=== PATIENT | male | born 1960 | race Caucasian/White ===

== ENCOUNTER → 2023-03-15 | Outpatient (CLI) | payer OTHER ==
--- NOTE | 2023-03-15 11:33 | XR ---
EXAMINATION TYPE: XR knee complete LT DATE OF EXAM: 03/15/2023 COMPARISON: None HISTORY: 63-year-old male S83.92 XA, left knee sprain TECHNIQUE: 3 views FINDINGS: There is a small knee joint effusion. Minimal degenerative spurring patellofemoral compartment. No ac royce fracture, subluxation, dislocation. IMPRESSION: There appears to be a small effusion in the knee which is nonspecific. Minimal degenerative spurring in the patellofemoral compartment. No acute osseous abnormality seen.
== END | disposition home or self-care (01) ==
LOC: RADXRMAIN 10:57
PROVIDERS: ATTEND Emergency Medicine
DX: S83.92XA Sprain of unspecified site of left knee, initial encounter (principal); M17.12 Unilateral primary osteoarthritis, left knee; Z87.39 Personal history of other diseases of the musculoskeletal system and connective tissue

== ENCOUNTER 2024-09-09 20:33 | Emergency (ER) | payer OTHER ==
[2024-09-09 20:52] VITALS: TEMP 98.5
--- NOTE | 2024-09-09 21:09 | ED ---
Back Pain HPI - General Chief Complaint: Back Pain/Injury Stated Complaint: back pain Time Seen by Provider: 09/09/24 21:06 Source: patient, RN notes reviewed Limitations: no limitations - History of Present Illness Initial Comments: 64-year-old male presenting with low back pain x 10 days. He describes a dull pain in the lower right back that radiates down the right leg. Pain is worse with movement and improved with lying supine. Patient saw a chiropractor 2 days ago where they performed a lumbar spine x-ray and diagnosed him with a slipped disc. Patient has been taking ibuprofen 600 with no relief. Denies bowel or bladder incontinence. Denies lower extremity weakness or numbness. Denies urinary symptoms or abdominal pain. - Related Data Home Medications Medication Instructions Recorded Confirmed Etanercept [Enbrel] 50 mg INJ SA 07/20/16 07/20/16 Previous Rx's Medication Instructions Recorded Cyclobenzaprine [Flexeril] 10 mg PO TID PRN #15 tab 09/09/24 Lidocaine 5% Patch [Lidoderm 5% 1 patch TOPICAL DAILY 7 Days #7 09/09/24 Patch] patch Allergies Allergy/AdvReac Type Severity Reaction Status Date / Time Penicillins Allergy Rash/Hives Verified 09/09/24 20:49 Review of Systems ROS Statement: Those systems with pertinent positive or pertinent negative responses have been documented in the HPI. ROS Other: All systems not noted in ROS Statement are negative. Past Medical History Additional Past Medical History / Comment(s): PSORIATIC ARTHRITIS, HX ENCEPHALITIS CHILD History of Any Multi-Drug Resistant Organisms: None Reported Past Surgical History: Appendectomy, Hernia Repair, Orthopedic Surgery Additional Past Surgical History / Comment(s): LEFT WRIST CYST REMOVED, RT THUMB SX, "GLAND" REMOVED FROM NECK , left knee Past Anesthesia/Blood Transfusion Reactions: No Reported Reaction Past Psychological History: No Psychological Hx Reported Smoking Status: Never smoker Past Alcohol Use History: Occasional Past Drug Use History: Marijuana - Past Family History Mother Family Medical History: No Reported History General Exam Limitations: no limitations General appearance: alert, in no apparent distress GI/Abdominal exam: Present: soft, normal bowel sounds. Absent: distended, tenderness, guarding, rebound, rigid Extremities exam: Present: normal inspection, full ROM, normal capillary refill. Absent: tenderness, pedal edema, joint swelling, calf tenderness Back exam: Present: normal inspection, full ROM, other (Full strength of bilateral lower extremities. No saddle anesthesia. Full sensation and DP pulses bilaterally). Absent: tenderness, CVA tenderness (R), CVA tenderness (L), muscle spasm, paraspinal tenderness (No reproducible tenderness), vertebral tenderness, rash noted Neurological exam: Present: alert, oriented X3 Psychiatric exam: Present: normal affect, normal mood Skin exam: Present: warm, dry, intact, normal color. Absent: rash Course Vital Signs 09/09/24 20:50 Temperature 98.5 F Pulse Rate 85 Respiratory 18 Rate Blood Pressure 163/93 O2 Sat by Pulse 95 Oximetry Medical Decision Making - Medical Decision Making Was pt. sent in by a medical professional or institution (, PA, RN UNIT MANAGER, urgent care, hospital, or senior living...) When possible be specific @ -No Did you speak to anyone other than the patient for history (EMS, parent, family, police, friend...)? What history was obtained from this source @ -No Did you review nursing and triage notes (agree or disagree)? Why? @ -I reviewed and agree with nursing and triage notes Were old charts reviewed (outside hosp., previous admission, EMS record, old EKG, old radiological studies, urgent care reports/EKG's, senior living records)? Report findings @ -No old charts were reviewed Differential Diagnosis (chest pain, altered mental status, abdominal pain women, abdominal pain men, vaginal bleeding, weakness, fever, dyspnea, syncope, headache, dizziness, GI bleed, back pain, seizure, CVA, palpatations, mental health, musculoskeletal)? @ -Differential Back Pain: Strain, zoster, cauda equina syndrome, epidural abscess, vertebral osteomyelitis, discitis, fracture, subluxation, disc herniation, DJD, spinal stenosis, dissection, AAA, pancreatitis, peptic ulcer disease, pyelonephritis, kidney stone, this is not meant to be an all-inclusive list. EKG interpreted by me (3pts min.). @ -None X-rays interpreted by me (1pt min.). @ -None done CT interpreted by me (1pt min.). @ -None done U/S interpreted by me (1pt. min.). @ -None done What testing was considered but not performed or refused? (CT, X-rays, U/S, labs)? Why? @ -Patient declined x-ray today as he states he had x-ray 2 days ago by chiropractor What meds were considered but not given or refused? Why? @ -None Did you discuss the management of the patient with other professionals (professionals i.e. , PA, RN UNIT MANAGER, lab, RT, psych nurse, rn social services, plant senior manager, teacher, air force senior officer, director of casework services)? Give summary @ -No Was smoking cessation discussed for >3mins.? @ -No Was critical care preformed (if so, how long)? @ -No Were there social determinants of health that impacted care today? How? (Homelessness, low income, unemployed, alcoholism, drug addiction, transportation, low edu. Level, literacy, decrease access to med. care, senior living, rehab)? @ -No Was there de-escalation of care discussed even if they declined (Discuss DNR or withdrawal of care, Hospice)? DNR status @ -No What co-morbidities impacted this encounter? (DM, HTN, Smoking, COPD, CAD, Cancer, CVA, ARF, Chemo, Hep., AIDS, mental health diagnosis, sleep apnea, morbid obesity)? @ -None Was patient admitted / discharged? Hospital course, mention meds given and route, prescriptions, significant lab abnormalities, going to OR and other pertinent info. @ -Discharge. This is a 64-year-old male presenting with low back pain x 10 days. No red flag symptoms. Neurovascularly intact. Patient was provided with analgesics. Patient declines x-ray of lower back. Urinalysis reveals trace protein, trace blood, 6 white blood cells, however not indicative of renal stone or UTI. Discussed diagnosis of low back strain. Supportive care/return precautions discussed. Analgesics sent to pharmacy. Advised orthopedic follow- up within the week. Patient is agreeable to this plan. Case was discussed with my ED attending Dr. Marcial. Patient discharged in stable condition. Undiagnosed new problem with uncertain prognosis? @ -No Drug Therapy requiring intensive monitoring for toxicity (Heparin, Nitro, Insulin, Cardizem)? @ -No Were any procedures done? @ -No Diagnosis/symptom? @ -Low back strain Acute, or Chronic, or Acute on Chronic? @ -Acute Uncomplicated (without systemic symptoms) or Complicated (systemic symptoms)? @ -Uncomplicated Side effects of treatment? @ -No Exacerbation, Progression, or Severe Exacerbation? @ -No Poses a threat to life or bodily function? How? (Chest pain, [place], [place], pneumonia, PE, COPD, DKA, ARF, appy, cholecystitis, CVA, Diverticulitis, Homicidal, Suicidal, threat to staff... and all critical care pts) @ -No - Lab Data Lab Results 09/09/24 Range/Units 22:10 Urine Color Colorless Urine Appearance Clear (Clear) Urine pH 5.5 (5.0-8.0) Ur Specific [place] 1.018 (1.001-1.035) Urine Protein Trace H (Negative) Urine Glucose (UA) Negative (Negative) Urine Ketones Negative (Negative) Urine Blood Trace H (Negative) Urine Nitrite Negative (Negative) Urine Bilirubin Negative (Negative) Urine Urobilinogen <2.0 (<2.0) mg/dL Ur Leukocyte Esterase Negative (Negative) Urine RBC <1 (0-5) /hpf Urine WBC 6 H (0-5) /hpf Ur Squamous Epith Cells <1 (0-4) /hpf Urine Bacteria Rare H (None) /hpf Cellular Casts 5 (0) /lpf Granular Casts 5 (0) /lpf Urine Mucus Few H (None) /hpf Disposition Clinical Impression: Low back strain Disposition: HOME SELF-CARE Condition: Stable Instructions (If sedation given, give patient instructions): Acute Low Back Pain (ED) Additional Instructions: Use lidocaine patches and take muscle relaxers as needed for pain. Please return to the Emergency Department if symptoms worsen or any other concerns. Prescriptions: Cyclobenzaprine [Flexeril] 10 mg PO TID PRN #15 tab PRN Reason: Muscle Spasm Lidocaine 5% Patch [Lidoderm 5% Patch] 1 patch TOPICAL DAILY 7 Days #7 patch Is patient prescribed a controlled substance at d/c from ED?: No Referrals: None,Stated [Primary Care Provider] - 1-2 days Markel Sweeney MD [STAFF PHYSICIAN] - 1-2 days Time of Disposition: 23:19
[2024-09-09] MEDS: ORPHENADRINE 30 MG/ML 2 ML VIAL IM STA (21:23)
[2024-09-09] MEDS: LIDOCAINE 4% PATCH TOPICAL ONE (21:25)
[2024-09-09 22:34] LABS: Appearance,Urine Clear (Clear); Bacteria,Urine Rare /hpf; Bilirubin,Urine Negative (Negative); Blood,Urine Trace (Negative); Cellular Casts,Urine 5 /lpf (0); Color,Urine Colorless; Glucose,Urine (UA) Negative (Negative); Granular Casts,Urine 5 /lpf (0); Ketones,Urine Negative (Negative); Leukocyte Esterase,Urine Negative (Negative); Mucus,Urine Few /hpf; Nitrite,Urine Negative (Negative); PH, Urine 5.5 (5.0-8.0); Protein,Urine Trace (Negative); RBC,Urine <1 /hpf (0-5); Specific Gravity,Urine 1.018 (1.001-1.035); Squamous Epithelial Cell,Urine <1 /hpf (0-4); Urobilinogen,Urine <2.0 mg/dL (<2.0); WBC,Urine 6 /hpf (0-5)
[2024-09-09] MEDS: MORPHINE SULFATE 4 MG/ML SYRINGE IM STA (22:50)
[2024-09-09] MEDS: KETOROLAC 15 MG/ML 1 ML VIAL IM STA (22:51)
[2024-09-09 23:36] VITALS: BP 162/88; PULSE 73; RESP 16
== END 2024-09-09 23:30 | disposition home or self-care (01) ==
LOC: EC 20:33
DX: S39.012A Strain of muscle, fascia and tendon of lower back, initial encounter (principal); Z88.0 Allergy status to penicillin; X50.0XXA Overexertion from strenuous movement or load, initial encounter
CPT/HCPCS: 81001; 99283; 96372 ×3; J2270; J2360; J1885

== ENCOUNTER 2024-09-27 09:05 | Inpatient (IN) | payer OTHER ==
--- NOTE | 2024-09-27 09:24 | ED ---
General Adult HPI - General Chief complaint: Back Pain/Injury Stated complaint: Lower back pain Time Seen by Provider: 09/27/24 09:08 Source: patient, family, EMS, RN notes reviewed Mode of arrival: EMS Limitations: no limitations - History of Present Illness Initial comments: Patient is a 64-year-old male present to the emergency department with concerns with lower back pain. Onset of symptoms was close to a month ago. Patient has discomfort of his lower back radiating to the right leg. No incontinence or retention of bowel or bladder. No leg weakness or loss of sensation. Patient did have similar episode around 25 years ago. Patient has seen a back doctor in [place] as well as Dr. Owusu here. Patient has also been to the emergency depar tment 1 time. Discomfort is severe at this time. Discomfort got worse while standing up today. - Related Data Home Medications Medication Instructions Recorded Confirmed Etanercept [Enbrel] 50 mg SQ SA 07/20/16 09/27/24 Famotidine [Pepcid] 20 mg PO BID 09/27/24 09/27/24 HYDROcodone/APAP 7.5-325MG [[place] 1 tab PO Q6H PRN 09/27/24 09/27/24 7.5-325] predniSONE [Deltasone] See Taper PO DIRECTED 09/27/24 09/27/24 Previous Rx's Medication Instructions Recorded Cyclobenzaprine [Flexeril] 10 mg PO TID PRN #15 tab 09/09/24 Allergies Allergy/AdvReac Type Severity Reaction Status Date / Time Penicillins Allergy Rash/Hives Verified 09/27/24 11:28 Review of Systems ROS Statement: Those systems with pertinent positive or pertinent negative responses have been documented in the HPI. ROS Other: All systems not noted in ROS Statement are negative. Constitutional: Denies: fever Eyes: Denies: eye pain ENT: Denies: ear pain Respiratory: Denies: cough Cardiovascular: Denies: chest pain Endocrine: Denies: fatigue Gastrointestinal: Denies: abdominal pain Musculoskeletal: Reports: as per HPI, back pain Neurological: Denies: weakness, numbness, paresthesias Past Medical History Additional Past Medical History / Comment(s): PSORIATIC ARTHRITIS, HX ENCEPHALITIS CHILD History of Any Multi-Drug Resistant Organisms: None Reported Past Surgical History: Appendectomy, Hernia Repair, Orthopedic Surgery Additional Past Surgical History / Comment(s): LEFT WRIST CYST REMOVED, RT THUMB SX, "GLAND" REMOVED FROM NECK , left knee Past Anesthesia/Blood Transfusion Reactions: No Reported Reaction Past Psychological History: No Psychological Hx Reported Smoking Status: Never smoker Past Alcohol Use History: Occasional Past Drug Use History: Marijuana - Past Family History Mother Family Medical History: No Reported History General Exam Limitations: no limitations General appearance: alert Head exam: Present: atraumatic, normocephalic Eye exam: Present: normal appearance Neck exam: Present: normal inspection Respiratory exam: Present: normal lung sounds bilaterally Cardiovascular Exam: Present: regular rate, normal rhythm Expanded Peripheral pulses: 2+: Dorsalis Pedis (R), Dorsalis Pedis (L) GI/Abdominal exam: Present: soft. Absent: distended, tenderness, pulsatile mass Extremities exam: Present: normal inspection Back exam: Present: vertebral tenderness (Mild tenderness lower lumbar region) Neurological exam: Present: alert. Absent: motor sensory deficit Expanded Sensory exam: Lower Extremity Light Touch: Normal Motor strength exam: RLE: 5, LLE: 5 Eye Response: (4) open spontaneously Motor Response: (6) obeys commands Verbal Response: (5) oriented Psychiatric exam: Present: normal affect, normal mood Skin exam: Present: normal color Course Vital Signs 09/27/24 09/27/24 09:07 10:19 Temperature 97.7 F Pulse Rate 111 H 78 Respiratory 20 20 Rate Blood Pressure 164/108 162/104 O2 Sat by Pulse 99 97 Oximetry Medical Decision Making - Medical Decision Making Was pt. sent in by a medical professional or institution (, PA, SUPERVISOR INSTRUMENT MAINTENANCE, urgent care, hospital, or group home...) When possible be specific @ -No Did you speak to anyone other than the patient for history (EMS, parent, family, police, friend...)? What history was obtained from this source @ - is present and provides history including that she does not feel she is able to take care of him at home anymore Did you review nursing and triage notes (agree or disagree)? Why? @ -I reviewed and agree with nursing and triage notes Were old charts reviewed (outside hosp., previous admission, EMS record, old EKG, old radiological studies, urgent care reports/EKG's, group home records)? Report findings @ -Reviewed previous x-ray results showing degenerative disc disease Differential Diagnosis (chest pain, altered mental status, abdominal pain women, abdominal pain men, vaginal bleeding, weakness, fever, dyspnea, syncope, headache, dizziness, GI bleed, back pain, seizure, CVA, palpatations, mental health, musculoskeletal)? @ -Differential Back Pain: Strain, zoster, cauda equina syndrome, epidural abscess, vertebral osteomyelitis, discitis, fracture, subluxation, disc herniation, DJD, spinal stenosis, dissection, AAA, pancreatitis, peptic ulcer disease, pyelonephritis, kidney stone, this is not meant to be an all-inclusive list. EKG interpreted by me (3pts min.). @ -As above X-rays interpreted by me (1pt min.). @ -None done CT interpreted by me (1pt min.). @ -None done U/S interpreted by me (1pt. min.). @ -None done What testing was considered but not performed or refused? (CT, X-rays, U/S, labs)? Why? @ -Considered imaging of the spine however patient has had previous x-ray and MRI What meds were considered but not given or refused? Why? @ -None Did you discuss the management of the patient with other professionals (professionals i.e. , PA, SUPERVISOR INSTRUMENT MAINTENANCE, lab, RT, psych nurse, health care social worker, probate lawyer, teacher, occupational medicine officer, shelter case manager)? Give summary @ -Case was discussed with Dr. Ch who will admit covering hospital call Was smoking cessation discussed for >3mins.? @ -No Was critical care preformed (if so, how long)? @ -No Were there social determinants of health that impacted care today? How? (Homelessness, low income, unemployed, alcoholism, drug addiction, transportation, low edu. Level, literacy, decrease access to med. care, senior care, rehab)? @ -No Was there de-escalation of care discussed even if they declined (Discuss DNR or withdrawal of care, Hospice)? DNR status @ -No What co-morbidities impacted this encounter? (DM, HTN, Smoking, COPD, CAD, Cancer, CVA, ARF, Chemo, Hep., AIDS, mental health diagnosis, sleep apnea, morbid obesity)? @ -None Was patient admitted / discharged? Hospital course, mention meds given and route, prescriptions, significant lab abnormalities, going to OR and other pertinent info. @ -Patient presents with increasing lower back pain. Patient feels pain is severe and unable to go home. Patient will be admitted with orthospine consult. Admission orders written. Patient and family updated. Undiagnosed new problem with uncertain prognosis? @ -No Drug Therapy requiring intensive monitoring for toxicity (Heparin, Nitro, Insulin, Cardizem)? @ -No Were any procedures done? @ -No Diagnosis/symptom? @ -Back pain Acute, or Chronic, or Acute on Chronic? @ -Acute on chronic Uncomplicated (without systemic symptoms) or Complicated (systemic symptoms)? @ -Default Side effects of treatment? @ -No Exacerbation, Progression, or Severe Exacerbation? @ -No Poses a threat to life or bodily function? How? (Chest pain, [place], [place], pneumonia, PE, COPD, DKA, ARF, appy, cholecystitis, CVA, Diverticulitis, Homicidal, Suicidal, threat to staff... and all critical care pts) @ -No Disposition Clinical Impression: Back pain Disposition: ADMITTED IP TO THIS HOSP Is patient prescribed a controlled substance at d/c from ED?: No Referrals: None,Stated [Primary Care Provider] - 1-2 days Time of Disposition: 11:55
[2024-09-27] MEDS: KETOROLAC 15 MG/ML 1 ML VIAL IVP STA (09:33)
[2024-09-27] MEDS: ORPHENADRINE 30 MG/ML 2 ML VIAL IVP STA (09:33)
[2024-09-27] MEDS: HYDROmorphone 1 MG/ML 1 ML SYRINGE IVP STA ×2 (09:33→10:25)
[2024-09-27] MEDS ORDERED: NALOXONE 0.4 MG/ML 1 ML VIAL IV PRN (11:55)
[2024-09-27] MEDS ORDERED: ACETAMINOPHEN TAB 325 MG TAB PO PRN (11:55)
--- NOTE | 2024-09-27 12:08 | P.HPIM ---
History of Present Illness This is a pleasant 64 years old male who presents because of worsening back pain, at bedside Patient states that he has back pain for 25 years. Usually treated with topical agents and follow-up with chiropractor Since beginning of August about 1 month ago his pain was starting getting more severe and was shooting sharp pain radiating to his right leg down to the knee. It was gradually getting worse. He saw his orthopedic Dr. Owusu in the outpatient on Tuesday who prescribed him [place] and prednisone 20 mg. Today patient was taking a shower on his knees and hands because he cannot sit while he was trying to stand up his pain was more severe and sharp so he decided to come to the emergency room Patient is in mild to moderate distress because of his pain, stating currently 7-8/10 in severity. He denies weakness in his legs. He denies losing control of his bowel or urine. He denies numbness in the saddle area but sometimes he got limb numbness, he thinks he has little numbness in the small area on his right thigh. He denies smoking alcohol or illicit drugs No chest pain or dyspnea. No other GI/ symptoms. Vitals are stable and he is afebrile. Urine analysis showing no signs of infection Currently there is no labs or imaging done Review of Systems Review of systems CONSTITUTIONAL: No fever, no malaise, no fatigue. HEENT: No recent visual problems or hearing problems. Denied any sore throat. CARDIOVASCULAR: No orthopnea, PND, no palpitations, no syncope. PULMONARY: No shortness of breath, no cough, no hemoptysis. GASTROINTESTINAL: No diarrhea, no nausea, no vomiting, no abdominal pain. Normoactive bowel sounds. NEUROLOGICAL: No headaches, no weakness, no numbness. HEMATOLOGICAL: Denies any bleeding or petechiae. GENITOURINARY: Denies any burning micturition, frequency, or urgency. MUSCULOSKELETAL/RHEUMATOLOGICAL: As above ENDOCRINE: Denies any polyuria or polydipsia. Past Medical History Additional Past Medical History / Comment(s): PSORIATIC ARTHRITIS, HX ENCEPHALITIS CHILD History of Any Multi-Drug Resistant Organisms: None Reported Past Surgical History: Appendectomy, Hernia Repair, Orthopedic Surgery Additional Past Surgical History / Comment(s): LEFT WRIST CYST REMOVED, RT THUMB SX, "GLAND" REMOVED FROM NECK , left knee Past Anesthesia/Blood Transfusion Reactions: No Reported Reaction Past Psychological History: No Psychological Hx Reported Smoking Status: Never smoker Past Alcohol Use History: Occasional Past Drug Use History: Marijuana - Past Family History Mother Family Medical History: No Reported History Medications and Allergies Home Medications Medication Instructions Recorded Confirmed Type Etanercept [Enbrel] 50 mg SQ SA 07/20/16 09/27/24 History Cyclobenzaprine [Flexeril] 10 mg PO TID PRN #15 tab 09/09/24 09/27/24 Rx Famotidine [Pepcid] 20 mg PO BID 09/27/24 09/27/24 History HYDROcodone/APAP 7.5-325MG [[place] 1 tab PO Q6H PRN 09/27/24 09/27/24 History 7.5-325] predniSONE [Deltasone] See Taper PO DIRECTED 09/27/24 09/27/24 History Allergies Allergy/AdvReac Type Severity Reaction Status Date / Time Penicillins Allergy Rash/Hives Verified 09/27/24 11:28 Physical Exam Vitals: Vital Signs Temp Pulse Resp BP Pulse Ox 09/27/24 10:19 78 20 162/104 97 09/27/24 09:07 97.7 F 111 H 20 164/108 99 Intake and Output 09/26/24 09/27/24 09/27/24 22:59 06:59 14:59 Other: Weight 83.915 kg GENERAL: The patient is alert and oriented x3, not in any acute distress. Well developed, well nourished. HEENT: Pupils are round and equally reacting to light. EOMI. No scleral icterus. No conjunctival pallor. Normocephalic, atraumatic. No pharyngeal erythema. No thyromegaly. CARDIOVASCULAR: S1 and S2 present. No murmurs, rubs, or gallops. PULMONARY: Chest is clear to auscultation, no wheezing , no crackles. ABDOMEN: Soft, nontender, nondistended, normoactive bowel sounds. No palpable organomegaly. -MUSCULOSKELETAL: No joint swelling or deformity. Patient moving his legs frequently because of pain. No overt weakness EXTREMITIES: No cyanosis, clubbing, or pedal edema. NEUROLOGICAL: Gross neurological examination did not reveal any focal deficits. SKIN: No rashes. no petechiae. Assessment and Plan Assessment: Severe acute on chronic back pain radiating to the right leg History of lumbar spondylolisthesis as per patient Plan: Continue with the steroids. Pain management Orthopedic team consult Follow-up labs Labs and medication were reviewed.. Continue same treatment. Continue with symptomatic treatment. Resume home medication. Monitor labs and vitals. DVT and GI prophylaxis. Further recommendations as per clinical course of the patient DVT prophylaxis: Subcutaneous heparin GI Prophylaxis: Ppi PT/OT: Pending, deferred Prognosis is guarded
[2024-09-27] MEDS: DEXAMETHASONE SOD PHOSPHATE 10 MG/ML 1 ML VIAL IVP STA (12:21)
[2024-09-27] MEDS: PANTOPRAZOLE 40 MG/10 ML VIAL IVP SCH (12:21)
[2024-09-27] MEDS: HYDROmorphone 1 MG/ML 1 ML SYRINGE IVP PRN (12:23)
[2024-09-27 12:34] LABS: Basophils % (A) 0 %; Eosinophils # (A) 0.1 k/uL (0-0.7); Eosinophils % (A) 0 %; HCT 45.1 % (39.0-53.0); HGB 15.5 gm/dL (13.0-17.5); Lymphocytes # (A) 2.3 k/uL (1.0-4.8); Lymphocytes % (A) 16 %; MCH 30.8 pg (25.0-35.0); MCHC 34.3 g/dL (31.0-37.0); Mean Platelet Volume 7.9; Monocytes # (A) 0.8 k/uL (0-1.0); Monocytes % (A) 6 %; Neutrophils # (A) 10.6 k/uL (1.3-7.7); Neutrophils % (A) 76 %; Platelet Count 282 k/uL (150-450); RBC 5.01 m/uL (4.30-5.90); RDW 12.2 % (11.5-15.5); WBC 13.9 k/uL (3.8-10.6)
[2024-09-27 12:40] LABS: African American GFR (CKD) >90 (>60 ml/min/1.73 sqM); Anion Gap 8 mmol/L; Blood Urea Nitrogen 21 mg/dL (9-20); Calcium 9.4 mg/dL (8.4-10.2); Carbon Dioxide 28 mmol/L (22-30); Chloride 99 mmol/L (98-107); Glucose 99 mg/dL (74-99); Non-African American GFR(CKD) >90 (>60 ml/min/1.73 sqM); Potassium 3.2 mmol/L (3.5-5.1); Sodium 135 mmol/L (137-145)
[2024-09-27] MEDS: KETOROLAC 15 MG/ML 1 ML VIAL IVP PRN (15:40)
[2024-09-27] MEDS: CYCLOBENZAPRINE 10 MG TAB PO PRN (16:33)
[2024-09-27] MEDS ORDERED: DEXAMETHASONE SOD PHOSPHATE 4 MG/ML 1 ML VIAL IVP PRN (18:09)
[2024-09-27] MEDS: SENNOSIDES-DOCUSATE SODIUM 1 EACH TAB PO SCH (18:29)
[2024-09-27] MEDS: traMADol 50 MG TAB PO PRN (19:59)
[2024-09-27] MEDS: DEXAMETHASONE SOD PHOSPHATE 4 MG/ML 1 ML VIAL IVP SCH (19:59)
[2024-09-27] MEDS: HEPARIN SODIUM,PORCINE 5,000 UNIT/ML 1 ML VIAL SQ SCH (19:59)
[2024-09-27] MEDS: FAMOTIDINE 20 MG TAB PO SCH (20:00)
--- NOTE | 2024-09-28 12:20 | P.PN ---
Subjective This is a pleasant 64 years old male who presents because of worsening back pain, at bedside Patient states that he has back pain for 25 years. Usually treated with topical agents and follow-up with chiropractor Since beginning of August about 1 month ago his pain was starting getting more severe and was shooting sharp pain radiating to his right leg down to the knee. It was gradually getting worse. He saw his orthopedic Dr. Owusu in the outpatient on Tuesday who prescribed him [place] and prednisone 20 mg. Today patient was taking a shower on his knees and hands because he cannot sit while he was trying to stand up his pain was more severe and sharp so he decided to come to the emergency room Patient is in mild to moderate distress because of his pain, stating currently 7-8/10 in severity. He denies weakness in his legs. He denies losing control of his bowel or urine. He denies numbness in the saddle area but sometimes he got limb numbness, he thinks he has little numbness in the small area on his right thigh. He denies smoking alcohol or illicit drugs No chest pain or dyspnea. No other GI/ symptoms. Vitals are stable and he is afebrile. Urine analysis showing no signs of infection Currently there is no labs or imaging done 09/28 Patient still with severe low back pain as of yesterday Despite his being on dexamethasone steroid and Dilaudid and Flexeril His pain is worse when he tried to go to the restroom. No other new complaints. Objective - Vital Signs Vital signs: Vital Signs Temp 98.1 F 09/28/24 07:00 Pulse 97 09/28/24 07:00 Resp 16 09/28/24 07:00 BP 159/95 09/28/24 08:00 Pulse Ox 97 09/28/24 07:00 FiO2 Intake & Output 09/27/24 09/28/24 09/28/24 18:59 06:59 18:59 Intake Total 480 Balance 480 Weight 83.915 kg Intake: Oral 480 Other: Voiding Method Toilet # Voids 3 - Exam GENERAL: The patient is alert and oriented x3, not in any acute distress. Well developed, well nourished. HEENT: Pupils are round and equally reacting to light. EOMI. No scleral icterus. No conjunctival pallor. Normocephalic, atraumatic. No pharyngeal erythema. No thyromegaly. CARDIOVASCULAR: S1 and S2 present. No murmurs, rubs, or gallops. PULMONARY: Chest is clear to auscultation, no wheezing , no crackles. ABDOMEN: Soft, nontender, nondistended, normoactive bowel sounds. No palpable organomegaly. MUSCULOSKELETAL: No joint swelling or deformity. EXTREMITIES: No cyanosis, clubbing, or pedal edema. NEUROLOGICAL: Gross neurological examination did not reveal any focal deficits. SKIN: No rashes. no petechiae. - Labs CBC & Chem 7: 09/27/24 12:23 09/27/24 12:23 Labs: Abnormal Lab Results - Last 24 Hours (Table) 09/27/24 09/27/24 Range/Units 12:23 12:23 WBC 13.9 H (3.8-10.6) k/uL Neutrophils # 10.6 H (1.3-7.7) k/uL Sodium 135 L (137-145) mmol/L Potassium 3.2 L (3.5-5.1) mmol/L BUN 21 H (9-20) mg/dL Assessment and Plan Assessment: Severe acute on chronic back pain radiating to the right leg History of lumbar spondylolisthesis as per patient Plan: Continue with the steroids. Pain management Orthopedic team consult Follow-up labs Labs and medication were reviewed.. Continue same treatment. Continue with symptomatic treatment. Resume home medication. Monitor labs and vitals. DVT and GI prophylaxis. Further recommendations as per clinical course of the patient DVT prophylaxis: Subcutaneous heparin GI Prophylaxis: Ppi PT/OT: Pending, deferred Prognosis is guarded
[2024-09-28] MEDS: polyethylene glycoL 3350 17 GM POWD.PACK PO SCH (14:45)
--- NOTE | 2024-09-28 16:45 | P.CNOR ---
History of Present Illness - HPI Consult date: 09/28/24 Consult reason: low back pain History of present illness: Patient is a pleasant 64-year-old male who is seen and examined at bedside. He is accompanied by his . He presented due to worsening low back pain. He has a long history of back pain for the past 25 years but he has had acute flareup of the past 1 month since the beginning of August. He says pain became sharp and shooting down his legs particular down his right leg to his thigh and his knee and has been getting worse. We saw him in the office this past week and we started him on some medication and steroid medication. He was not having any benefit and yesterday when he was trying to shower he felt severe sharp pain in his back and his leg and presented to the emergency room. He feels incapacitated due to his pain. He does not feel weak in his legs. He denies any changes bowel bladder function. He says the pain is primarily in his back towards the right buttocks and his right thigh. He denies any weakness in his upper extremities or his neck. He denies any chest pain shortness of breath. Denies any nausea or vomiting. He normally works but has not worked for the past month. He had imaging at our office which showed listhesis and facet arthrosis with stenosis at the lower lumbar spine. Review of Systems As per HPI. He denies any GI or symptoms. He is afebrile. He denies any smoking or illicit drugs. He denies any recent infections. Denies any weakness in his lower extremities. He denies any new trauma. Past Medical History Additional Past Medical History / Comment(s): PSORIATIC ARTHRITIS, HX ENCEPHALITIS CHILD History of Any Multi-Drug Resistant Organisms: None Reported Past Surgical History: Appendectomy, Hernia Repair, Orthopedic Surgery Additional Past Surgical History / Comment(s): LEFT WRIST CYST REMOVED, RT THUMB SX, "GLAND" REMOVED FROM NECK , left knee Past Anesthesia/Blood Transfusion Reactions: No Reported Reaction Past Psychological History: No Psychological Hx Reported Smoking Status: Never smoker Past Alcohol Use History: Occasional Past Drug Use History: Marijuana Additional Drug Use History / Comment(s): OCCASIONAL USE, INSTRUCTED TO WITHOLD 24 HRS PRIOR TO PROCEDURE states last marijuana was yesterday - Past Family History Mother Family Medical History: No Reported History Medications and Allergies Home Medications Medication Instructions Recorded Confirmed Type Etanercept [Enbrel] 50 mg SQ SA 07/20/16 09/27/24 History Cyclobenzaprine [Flexeril] 10 mg PO TID PRN #15 tab 09/09/24 09/27/24 Rx Famotidine [Pepcid] 20 mg PO BID 09/27/24 09/27/24 History HYDROcodone/APAP 7.5-325MG [[place] 1 tab PO Q6H PRN 09/27/24 09/27/24 History 7.5-325] predniSONE [Deltasone] See Taper PO DIRECTED 09/27/24 09/27/24 History Allergies Allergy/AdvReac Type Severity Reaction Status Date / Time Penicillins Allergy Rash/Hives Verified 09/27/24 11:28 Physical Examination Osteopathic Statement: *. No significant issues noted on an osteopathic structural exam other than those noted in the History and Physical/Consult. - L Spine: dermatomal strength & reflexes bilateral Strength: hip flexion: 5/5 (His back has significant pain when he tries to move or change positions. He has severe paravertebral spasm. There is no open wounds lacerations or abrasions.) Strength: knee flexion: 5/5 (He has 5 of 5 dorsiflexion plantarflexion EHL hip flexion knee extension. No pain with internal extra rotation of his hips. Pelvis stable. Abdomen soft nontender.) Strength: knee extension: 5/5 (Chest has good excursion deep inspiration expiration next nontender to palpation range of motion. Upper extremities have full active and passive range of motion intact) Results - Labs Labs: H & H 09/27/24 Range/Units 12:23 Hgb 15.5 (13.0-17.5) gm/dL Hct 45.1 (39.0-53.0) % Result Diagrams: 09/27/24 12:23 09/27/24 12:23 - Diagnostic results Lumbar AP/lateral x-ray: report reviewed, image reviewed (He is old images from 2022 of his lumbar spine but had new images at our office. He has severe disc degeneration L4-5 L5-S1 with retrolisthesis L4-5 and spondylolisthesis L5-S1. There is spondylolysis at L5 bilaterally) Assessment and Plan Assessment: Acute on chronic low back pain, severe Inability to mobilize due to back pain Spondylolisthesis L4-5 L5-S1 Degenerative disc disease L4-5 L5-S1 Diffuse spondylosis lower lumbar spine without neurologic deficit Lower extremity radiculopathy worse on the right than the left Plan: Acute on chronic low back pain, severe Inability to mobilize due to back pain Spondylolisthesis L4-5 L5-S1 Degenerative disc disease L4-5 L5-S1 Diffuse spondylosis lower lumbar spine without neurologic deficit Lower extremity radiculopathy worse on the right than the left The patient has a number of changes at his lower lumbar spine which correlate well with his low back symptoms. He has had acute exacerbation of his symptoms which have been unrelenting for him over the past 30 days and he feels like they are worsening. He has been trying oral steroid medication however this seems to be failing him. He is not having acute neurologic loss or deficit in his lower extremities. His symptoms correlate well with his imaging findings which were done on outpatient outpatient basis. I think he is a candidate for further interventi on. He may have some benefit with interventional pain management in the form of epidural steroid or facet injections. It is difficult to predict how long this may give him relief but I think is a reasonable option for him to see if it allows him to settle down some of his symptoms and regain some of his activities. The patient is a candidate for surgical intervention in the form of decompressio n and fusion at L4-5 and L5-S1. I explained the nature of surgery with him. I explained the risk complications all terms of benefits at length. I answered his questions best my ability limb she understand. At this point he is interested in continuing with conservative treatment and interventional pain management. He understands that surgery may be a reasonable option for him if he is not having significant improvement and continues to have severe issues. Will continue to follow him closely. He will continue with the IV steroid medications pain medication and physical therapy did not help with his mobilization.
[2024-09-29] MEDS: NON FORMULARY DRUG (Etanercept [Enbrel] 50 MG/ML Syringe) SQ SCH (08:44)
[2024-09-29 09:39] LABS: Blood Urea Nitrogen 25.8 mg/dL (9.0-27.0); Calcium 9.7 mg/dL (8.7-10.3); Chloride 100 mmol/L (96-109); Glucose 127 mg/dL (70-110); Magnesium 2.2 mg/dL (1.5-2.4); Potassium 4.6 mmol/L (3.5-5.5); Sodium 138 mmol/L (135-145)
--- NOTE | 2024-09-29 10:48 | P.PN ---
Progress Note - Text Progress Note Date: 09/29/24 The patient is seen and examined bedside. His is present with him. He says he had a better night last night. He still requiring regular medications. But he has been getting up to get to the bathroom but then back in bed. He feels that is about as far as he can walk. He is afebrile stable vital signs His lower extremities have 5-5 muscle strength dorsiflexion plantarflexion EHL hip flexion knee extension. [place] thighs soft nontender Acute on chronic low back pain Spondylolisthesis L4-5 L5-S1 Degenerative disc disease Lower EXTR and radiculopathy The patient may have had some improvement with his pain symptoms. It is possible that the steroid IV is giving him some relief. Hopefully he will be able to continue to mobilize and make gains in terms of his pain control. Pain management has been consulted for the possibility of epidural steroid injection which the patient plans to proceed with when they are available on Tuesday.
[2024-09-29] MEDS: amLODIPine 5 MG TAB PO SCH (18:56)
--- NOTE | 2024-09-29 21:37 | P.PN ---
Subjective This is a pleasant 64 years old male who presents because of worsening back pain, at bedside Patient states that he has back pain for 25 years. Usually treated with topical agents and follow-up with chiropractor Since beginning of August about 1 month ago his pain was starting getting more severe and was shooting sharp pain radiating to his right leg down to the knee. It was gradually getting worse. He saw his orthopedic Dr. Owusu in the outpatient on Tuesday who prescribed him [place] and prednisone 20 mg. Today patient was taking a shower on his knees and hands because he cannot sit while he was trying to stand up his pain was more severe and sharp so he decided to come to the emergency room Patient is in mild to moderate distress because of his pain, stating currently 7-8/10 in severity. He denies weakness in his legs. He denies losing control of his bowel or urine. He denies numbness in the saddle area but sometimes he got limb numbness, he thinks he has little numbness in the small area on his right thigh. He denies smoking alcohol or illicit drugs No chest pain or dyspnea. No other GI/ symptoms. Vitals are stable and he is afebrile. Urine analysis showing no signs of infection Currently there is no labs or imaging done 09/28 Patient still with severe low back pain as of yesterday Despite his being on dexamethasone steroid and Dilaudid and Flexeril His pain is worse when he tried to go to the restroom. No other new complaints. 09/29 Patient back pain is slightly improving. While continued on IV steroids Orthopedic team evaluated the patient and recommended pain management service which is not available till Tuesday. Patient agrees to stay Patient have somewhat high blood pressure secondary to steroid effect. Added Norvasc and hydralazine as needed Objective - Vital Signs Vital signs: Vital Signs Temp 98.5 F 09/29/24 14:00 Pulse 92 09/29/24 14:09 Resp 16 09/29/24 14:09 BP 160/109 09/29/24 14:00 Pulse Ox 97 09/29/24 14:00 FiO2 Intake & Output 09/28/24 09/29/24 09/29/24 18:59 06:59 18:59 Intake Total 1040 573 Balance 1040 573 Intake: Oral 1040 573 Other: Voiding Method Toilet # Voids 3 3 3 # Bowel Movements 1 - Exam GENERAL: The patient is alert and oriented x3, not in any acute distress. Well developed, well nourished. HEENT: Pupils are round and equally reacting to light. EOMI. No scleral icterus. No conjunctival pallor. Normocephalic, atraumatic. No pharyngeal erythema. No thyromegaly. CARDIOVASCULAR: S1 and S2 present. No murmurs, rubs, or gallops. PULMONARY: Chest is clear to auscultation, no wheezing , no crackles. ABDOMEN: Soft, nontender, nondistended, normoactive bowel sounds. No palpable or ganomegaly. MUSCULOSKELETAL: No joint swelling or deformity. EXTREMITIES: No cyanosis, clubbing, or pedal edema. NEUROLOGICAL: Gross neurological examination did not reveal any focal deficits. SKIN: No rashes. no petechiae. 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 Pain management Orthopedic team consult Start Norvasc and hydralazine as needed Labs and medication were reviewed.. Continue same treatment. Continue with symptomatic treatment. Resume home medication. Monitor labs and vitals. DVT and GI prophylaxis. Further recommendations as per clinical course of the patient DVT prophylaxis: Subcutaneous heparin GI Prophylaxis: Ppi PT/OT: Pending, deferred Prognosis is guarded
[2024-09-30] MEDS: HYDROmorphone 0.5 MG/0.5 ML SYRINGE IVP PRN ×2 (04:26→15:17)
[2024-09-30] MEDS: hydrALAZINE HCL 25 MG TAB PO PRN (09:25)
--- NOTE | 2024-09-30 12:01 | P.PN ---
Progress Note - Text Progress Note Date: 09/30/24 Patient seen and examined. He is not having new issues in his low back or his lower extremities but he does say that there is significant diarrhea with some blood in the diarrhea as well. It is red blood. He says his stomach is not feeling bad but he had to go multiple times overnight. He is afebrile Abdomen soft nontender Extremities have 5 out of 5 strength with dorsiflexion plantarflexion EHL hip flexion knee extension Acute on chronic low back pain Spondylolisthesis L4-5 L5-S1 Spinal stenosis Neurogenic claudication Degenerative disc disease New bloody diarrhea overnight In terms the patient's low back we are waiting him to be seen from pain management. He is a candidate for epidural steroid injections to see if that gives him some relief and possibly facet injections. We again discussed this. He is continuing his medical management for his low back but if pain management were to fail to give him any significant relief over the next few weeks, then he would be a candidate for surgical intervention. He is going to get further workup in regards to his bloody diarrhea. That medicine service is ordering labs and further workup and treatment. They have held his stool softener for now
--- NOTE | 2024-09-30 12:28 | P.PN ---
Subjective This is a pleasant 64 years old male who presents because of worsening back pain, at bedside Patient states that he has back pain for 25 years. Usually treated with topical agents and follow-up with chiropractor Since beginning of August about 1 month ago his pain was starting getting more severe and was shooting sharp pain radiating to his right leg down to the knee. It was gradually getting worse. He saw his orthopedic Dr. Owusu in the outpatient on Tuesday who prescribed him [place] and prednisone 20 mg. Today patient was taking a shower on his knees and hands because he cannot sit while he was trying to stand up his pain was more severe and sharp so he decided to come to the emergency room Patient is in mild to moderate distress because of his pain, stating currently 7-8/10 in severity. He denies weakness in his legs. He denies losing control of his bowel or urine. He denies numbness in the saddle area but sometimes he got limb numbness, he thinks he has little numbness in the small area on his right thigh. He denies smoking alcohol or illicit drugs No chest pain or dyspnea. No other GI/ symptoms. Vitals are stable and he is afebrile. Urine analysis showing no signs of infection Currently there is no labs or imaging done 09/28 Patient still with severe low back pain as of yesterday Despite his being on dexamethasone steroid and Dilaudid and Flexeril His pain is worse when he tried to go to the restroom. No other new complaints. 09/29 Patient back pain is slightly improving. While continued on IV steroids Orthopedic team evaluated the patient and recommended pain management service which is not available till Tuesday. Patient agrees to stay Patient have somewhat high blood pressure secondary to steroid effect. Added Norvasc and hydralazine as needed 09/30 Patient was seen walking in his room. Also reports some of blood in his stool which was witnessed by staff, it was small streaks. Patient denies dizziness or chest pain or dyspnea. Will do some anemia workup like occult blood in stool. Increase Protonix to twice daily, discontinue subcutaneous heparin. we will consult surgery team for his gi bleed as there is no gi coverage in this facility this weekend Review of systems CONSTITUTIONAL: No fever, no malaise, no fatigue. HEENT: No recent visual problems or hearing problems. Denied any sore throat. CARDIOVASCULAR: No orthopnea, PND, no palpitations, no syncope. PULMONARY: No shortness of breath, no cough, no hemoptysis. GASTROINTESTINAL: No diarrhea, no nausea, no vomiting, no abdominal pain. Normoactive bowel sounds. NEUROLOGICAL: No headaches, no weakness, no numbness. Active Medications Generic Name Dose Route Start Last Admin Trade Name Freq PRN Reason Stop Dose Admin Acetaminophen 650 mg 09/27/24 11:55 Acetaminophen Tab 325 Mg Tab PO Q6HR PRN Mild Pain or Fever > 100.5 Amlodipine Besylate 5 mg 09/29/24 18:15 09/30/24 09:22 Amlodipine 5 Mg Tab PO 5 mg DAILY SARI Administration Cyclobenzaprine HCl 10 mg 09/27/24 11:56 09/30/24 09:22 Cyclobenzaprine 10 Mg Tab PO 10 mg TID PRN Administration Muscle Spasm Dexamethasone Sodium Phosphate 4 mg 09/27/24 21:00 09/30/24 09:19 Dexamethasone Sod Phosphate 4 Mg/Ml 1 Ml Vial IVP 4 mg Q6H SARI Administration Hydralazine HCl 25 mg 09/29/24 18:10 09/30/24 09:25 Hydralazine Hcl 25 Mg Tab PO 25 mg QID PRN Administration Blood Pressure - High Hydromorphone HCl 0.5 mg 09/30/24 12:22 Hydromorphone 0.5 Mg/0.5 Ml Syringe IVP Q3HR PRN Severe Pain (Scale 7 to 10) Naloxone HCl 0.2 mg 09/27/24 11:55 Naloxone 0.4 Mg/Ml 1 Ml Vial IV Q2M PRN Opioid Reversal Non-Formulary Medication 50 mg 09/29/24 09:00 09/29/24 08:44 Etanercept [Enbrel] SQ Not Given SA [facility] Pantoprazole Sodium 40 mg 09/30/24 21:00 Pantoprazole 40 Mg/10 Ml Vial IVP BID [facility] Polyethylene Glycol 17 gm 09/28/24 13:00 09/30/24 09:22 Polyethylene Glycol 3350 17 Gm Powd.Pack PO Not Given DAILY [facility] Senna/Docusate Sodium 1 each 09/27/24 18:15 09/30/24 09:23 Sennosides-Docusate Sodium 1 Each Tab PO Not Given DAILY [facility] Tramadol HCl 50 mg 09/27/24 11:55 11/30/24 16:02 Tramadol 50 Mg Tab PO 50 mg Q6H PRN Administration Moderate Pain (Scale 4 to 6) Objective - Vital Signs Vital signs: Vital Signs Temp 97.9 F 09/30/24 07:00 Pulse 110 H 09/30/24 07:00 Resp 16 09/30/24 07:00 BP 170/112 09/30/24 07:00 Pulse Ox 96 09/30/24 07:00 FiO2 Intake & Output 09/29/24 09/30/24 09/30/24 18:59 06:59 18:59 Intake Total 573 717 Balance 573 717 Intake: Oral 573 717 Other: Voiding Method Toilet Toilet # Voids 3 2 # Bowel Movements 1 - Exam GENERAL: The patient is alert and oriented x3, not in any acute distress. Well developed, well nourished. HEENT: Pupils are round and equally reacting to light. EOMI. No scleral icterus. No conjunctival pallor. Normocephalic, atraumatic. No pharyngeal erythema. No thyromegaly. CARDIOVASCULAR: S1 and S2 present. No murmurs, rubs, or gallops. PULMONARY: Chest is clear to auscultation, no wheezing , no crackles. ABDOMEN: Soft, nontender, nondistended, normoactive bowel sounds. No palpable organomegaly. MUSCULOSKELETAL: No joint swelling or deformity. EXTREMITIES: No cyanosis, clubbing, or pedal edema. NEUROLOGICAL: Gross neurological examination did not reveal any focal deficits. SKIN: No rashes. no petechiae. - Labs CBC & Chem 7: 09/27/24 12:23 09/29/24 04:40 Assessment and Plan Assessment: Severe acute on chronic back pain radiating to the right leg streaks of blood in his stool. 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 Continue same treatment. Continue with symptomatic treatment. Resume home medication. Monitor labs and vitals. DVT and GI prophylaxis. Further recommendations as per clinical course of the patient DVT prophylaxis: Subcutaneous heparin, held for possible GI bleed GI Prophylaxis: Ppi, increased frequency to twice daily PT/OT: Pending, deferred Prognosis is guarded Plan discussed with patient and he agrees
[2024-09-30 12:51] LABS: Basophils % (A) 0 %; Eosinophils % (A) 0 %; HCT 45.4 % (39.0-53.0); HGB 15.7 gm/dL (13.0-17.5); Lymphocytes # (A) 0.7 k/uL (1.0-4.8); Lymphocytes % (A) 4 %; MCH 30.6 pg (25.0-35.0); MCHC 34.6 g/dL (31.0-37.0); MCV 88.7 fL (80.0-100.0); Mean Platelet Volume 8.4; Monocytes # (A) 1.1 k/uL (0-1.0); Monocytes % (A) 7 %; Neutrophils # (A) 12.9 k/uL (1.3-7.7); Neutrophils % (A) 87 %; Platelet Count 289 k/uL (150-450); RBC 5.13 m/uL (4.30-5.90); RDW 12.6 % (11.5-15.5); WBC 14.8 k/uL (3.8-10.6)
[2024-09-30] MEDS: PANTOPRAZOLE 40 MG/10 ML VIAL IVP SCH (21:14)
[2024-10-01 06:21] LABS: Basophils % (A) 0 %; Eosinophils % (A) 0 %; HCT 45.2 % (39.0-53.0); HGB 15.4 gm/dL (13.0-17.5); Lymphocytes # (A) 0.9 k/uL (1.0-4.8); Lymphocytes % (A) 6 %; MCH 30.3 pg (25.0-35.0); MCHC 34.2 g/dL (31.0-37.0); MCV 88.5 fL (80.0-100.0); Mean Platelet Volume 8.8; Monocytes # (A) 0.7 k/uL (0-1.0); Monocytes % (A) 5 %; Neutrophils % (A) 88 %; Platelet Count 301 k/uL (150-450); RDW 12.6 % (11.5-15.5); WBC 13.7 k/uL (3.8-10.6)
[2024-10-01] MEDS: HYDROmorphone 1 MG/ML 1 ML SYRINGE IVP PRN (08:28)
[2024-10-01 08:57] LABS: % Iron Saturation 83.82 (15.00-50.00)
--- NOTE | 2024-10-01 12:52 | P.GSCN ---
History of Present Illness Consult date: 10/01/24 History of present illness: CHIEF COMPLAINT: Back pain HISTORY OF PRESENT ILLNESS: This is a 64-year-old male who presented to the hospital with complaints of back pain radiating down the right leg. Patient is being followed by spinal service and is scheduled to be evaluated by pain service today for possible steroid injection. During his hospitalization patient had complained of constipation. Was receiving stool softeners and then had multiple episodes of diarrhea on Tuesday. Patient had been having bloody diarrhea on Tuesday. He has had no further bloody stools on Tuesday or today. Denies any abdominal pain. Denies any nausea or vomiting. Hemoglobin is remained stable at 15. Stool for occult blood was positive. Last colonoscopy was in 2016 reporting diverticulosis. Patient denies being on any blood thinners. PAST MEDICAL HISTORY: See below PAST SURGICAL HISTORY: See below MEDICATIONS: See below ALLERGIES: See below SOCIAL HISTORY: No illicit drug use. REVIEW OF SYSTEMS: CONSTITUTIONAL: Denies fever or chills. HEENT: Denies blurred vision, vision changes, or eye pain. Denies hemoptysis CARDIOVASCULAR: Denies chest pain or pressure. RESPIRATORY: No shortness of breath. GASTROINTESTINAL: See HPI for pertinent findings HEMATOLOGIC: Denies bleeding disorders. GENITOURINARY: Denies any blood in urine or increased urinary frequency. SKIN: Denies pruitis. Denies rash. PHYSICAL EXAM: VITAL SIGNS: Reviewed GENERAL: Well-developed in no acute distress. HEENT: No sclera icterus. Extraocular movements grossly intact. Moist buccal mucosa. Head is atraumatic, normocephalic. No nasal drainage. ABDOMEN: Soft. Nondistended. Nontender NEUROLOGIC: Alert and oriented. Cranial nerves II through XII grossly intact. LABORATORY DATA: WBC 13.7 Hgb 15.4 platelets 301 Stool for occult blood positive IMAGING: ASSESSMENT: 1. Bloody diarrhea that has now resolved. Hemoglobin stable. 2. Chronic back pain 3. History of diverticulosis 4. Constipation PLAN: -No plans for colonoscopy at this time. Patient's bleeding has resolved and hemoglobin remained stable -Continue regular diet -Recommend colonoscopy outpatient -Back pain per spinal service and pain management Physician Legal Coordinator note has been reviewed by physician. Signing provider agrees with the documented findings, assessment, and plan of care. Past Medical History Additional Past Medical History / Comment(s): PSORIATIC ARTHRITIS, HX ENCEPHALITIS CHILD History of Any Multi-Drug Resistant Organisms: None Reported Past Surgical History: Appendectomy, Hernia Repair, Orthopedic Surgery Additional Past Surgical History / Comment(s): LEFT WRIST CYST REMOVED, RT THUMB SX, "GLAND" REMOVED FROM NECK , left knee Past Anesthesia/Blood Transfusion Reactions: No Reported Reaction Past Psychological History: No Psychological Hx Reported Smoking Status: Never smoker Past Alcohol Use History: Occasional Past Drug Use History: Marijuana Additional Drug Use History / Comment(s): OCCASIONAL USE, INSTRUCTED TO WITHOLD 24 HRS PRIOR TO PROCEDURE states last marijuana was yesterday - Past Family History Mother Family Medical History: No Reported History Medications and Allergies Home Medications Medication Instructions Recorded Confirmed Type Etanercept [Enbrel] 50 mg SQ SA 07/20/16 09/27/24 History Cyclobenzaprine [Flexeril] 10 mg PO TID PRN #15 tab 09/09/24 09/27/24 Rx Famotidine [Pepcid] 20 mg PO BID 09/27/24 09/27/24 History HYDROcodone/APAP 7.5-325MG [Stoddard 1 tab PO Q6H PRN 09/27/24 09/27/24 History 7.5-325] predniSONE [Deltasone] See Taper PO DIRECTED 09/27/24 09/27/24 History Allergies Allergy/AdvReac Type Severity Reaction Status Date / Time Penicillins Allergy Rash/Hives Verified 09/27/24 11:28 Surgical - Exam Vital Signs Temp Pulse Resp BP Pulse Ox 97.7 F 111 H 20 164/108 99 09/27/24 09:07 09/27/24 09:07 09/27/24 09:07 09/27/24 09:07 09/27/24 09:07 Results - Labs 10/01/24 05:17 09/29/24 04:40 Abnormal Lab Results - Last 24 Hours (Table) 09/30/24 10/01/24 10/01/24 Range/Units 12:05 05:17 05:17 WBC 14.8 H 13.7 H (3.8-10.6) k/uL Neutrophils # 12.9 H 12.0 H (1.3-7.7) k/uL Lymphocytes # 0.7 L 0.9 L (1.0-4.8) k/uL Monocytes # 1.1 H (0-1.0) k/uL Iron 202 H (65-175) UG/DL % Saturation 83.82 H (15.00-50.00) Transferrin 172.0 L (204.0-354.0) mg/dL Ferritin 389.0 H (22.0-322.0) ng/mL
--- NOTE | 2024-10-01 13:03 | P.PN ---
Progress Note - Text Progress Note Date: 10/01/24 Patient is seen and examined at bedside. He is able to move himself to the bathroom but unable to stand up for more than a minute or 2 at a time. He is still having feelings for diarrhea. He has been seen by medicine service and pain service. His white count is slightly elevated likely due to his steroids. He has remained afebrile His lower extremities have sustained dorsiflexion plantarflexion EHL intact Acute on chronic low back pain Spondylolisthesis L4-5 L5-S1 Lower extreme radiculopathy Diarrhea and bloody stools The patient has been seen by surgery service as well as pain management. We have been awaiting possibility of epidural steroid injections which is scheduled for tomorrow. Hopefully this can allow some relief of his symptoms so that he can mobilize and potentially be at home to see if he continues to make improvement or if he will need to present back for potential of surgical intervention at his lumbar spine. I have printed and placed MRI images of the patient's lumbar spine from earlier this month in the patient's chart. There are printed images of the MRI inside the patient's chart that can be utilized for pain management procedures. The also has a disc of the imaging. The patient has recurrent diarrhea with some bloody stools. He is being managed by medicine. He is on a clear liquid diet in case they are considering the possibility of scope.
--- NOTE | 2024-10-01 14:50 | P.PN ---
Subjective Progress Note Date: 10/01/24 This is a pleasant 64 years old male who presents because of worsening back pain, at bedside Patient states that he has back pain for 25 years. Usually treated with topical agents and follow-up with chiropractor Since beginning of August about 1 month ago his pain was starting getting more severe and was shooting sharp pain radiating to his right leg down to the knee. It was gradually getting worse. He saw his orthopedic Dr. Owusu in the outpatient on Tuesday who prescribed him [place] and prednisone 20 mg. Today patient was taking a shower on his knees and hands because he cannot sit while he was trying to stand up his pain was more severe and sharp so he decided to come to the emergency room Patient is in mild to moderate distress because of his pain, stating currently 7-8/10 in severity. He denies weakness in his legs. He denies losing control of his bowel or urine. He denies numbness in the saddle area but sometimes he got limb numbness, he thinks he has little numbness in the small area on his right thigh. He denies smoking alcohol or illicit drugs No chest pain or dyspnea. No other GI/ symptoms. Vitals are stable and he is afebrile. Urine analysis showing no signs of infection Currently there is no labs or imaging done 09/28 Patient still with severe low back pain as of yesterday Despite his being on dexamethasone steroid and Dilaudid and Flexeril His pain is worse when he tried to go to the restroom. No other new complaints. 09/29 Patient back pain is slightly improving. While continued on IV steroids Orthopedic team evaluated the patient and recommended pain management service which is not available till Tuesday. Patient agrees to stay Patient have somewhat high blood pressure secondary to steroid effect. Added Norvasc and hydralazine as needed 09/30 Patient was seen walking in his room. Also reports some of blood in his stool which was witnessed by staff, it was small streaks. Patient denies dizziness or chest pain or dyspnea. Will do some anemia workup like occult blood in stool. Increase Protonix to twice daily, discontinue subcutaneous heparin. we will consult surgery team for his gi bleed as there is no gi coverage in this facility this weekend Review of systems CONSTITUTIONAL: No fever, no malaise, no fatigue. HEENT: No recent visual problems or hearing problems. Denied any sore throat. CARDIOVASCULAR: No orthopnea, PND, no palpitations, no syncope. PULMONARY: No shortness of breath, no cough, no hemoptysis. GASTROINTESTINAL: No diarrhea, no nausea, no vomiting, no abdominal pain. Normoactive bowel sounds. NEUROLOGICAL: No headaches, no weakness, no numbness. 10/01/2024 Patient is seen and evaluated in follow-up today reports was seeing some bright red blood in the stool and general surgery was consulted and placed patient on clear liquids with concerns of possible GI bleed. Patient reports he was constipated prior to hospitalization and now is having multiple loose stools although no further blood noted. Hemoglobin is stable at 15.4 and again no further bleeding noted. Stool occult was positive. General surgery discussing possible need for EGD/colonoscopy. Patient did have a colonoscopy a few years ago and surgery has requested the results. Patient is reporting continued pain and evaluated by pain management scheduled to undergo epidural injection on 10/02/2024. Orthopedics following with no plans for immediate surgical intervention at this time. Will continue current regimen and monitor closely. Await PT/OT therapy evaluation Review of systems CONSTITUTIONAL: No fever, no malaise, no fatigue. HEENT: No recent visual problems or hearing problems. Denied any sore throat. CARDIOVASCULAR: No orthopnea, PND, no palpitations, no syncope. PULMONARY: No shortness of breath, no cough, no hemoptysis. GASTROINTESTINAL: Reported episodes of diarrhea, no nausea, no vomiting, no abdominal pain. Normoactive bowel sounds. Reports no further blood noted in the stool NEUROLOGICAL: No headaches, reports of generalized weakness and continued lower back pain Physical exam: Gen: This is a 64-year-old male who is awake, alert and oriented x 3, thin built, elderly appearing HEENT: Head is atraumatic, normocephalic. Pupils equal, round. Sclerae is anicteric. NECK: Supple. No JVD. No lymphadenopathy. No thyromegaly. LUNGS: Diminished breath sounds bilaterally otherwise clear to auscultation. No wheezes or rhonchi. No intercostal retractions. HEART: S1, S2 are muffled ABDOMEN: Soft. Thin, nontender on palpation bowel sounds are present. No masses. No tenderness. EXTREMITIES: No pedal edema. No calf tenderness. Twitching and spasms noted of lower extremities bilaterally on exam NEUROLOGICAL: Patient is awake, alert and oriented x3. Cranial nerves 2 through 12 are grossly intact. Diffusely weak Assessment: Severe acute on chronic back pain radiating to the right leg streaks of blood in his stool. 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 Patient scheduled for epidural injection on 10/02/2024 and will be n.p.o. at night General Surgery consulted with concerns of seeing bright red blood in the stool, awaiting further evaluation and has been placed on clear liquids Awaiting PT/OT therapy evaluation. Will discuss with other consultations regarding discharge planning after epidural injection Overall prognosis is guarded at this time. The impression and plan of care has been dictated by Diane Kam, Nurse Practitioner as directed. Dr. Garland MD I have performed a history and examination and MDM of this patient, discussed the same with the dictator, and agree with the dictator's assessment and plan as written ,documented as a scribe. Based on total visit time, I have performed more than 50% of the visit. Objective - Vital Signs Vital signs: Vital Signs Temp 97.9 F 10/01/24 07:00 Pulse 91 10/01/24 07:00 Resp 16 10/01/24 07:00 BP 149/92 10/01/24 07:00 Pulse Ox 94 L 10/01/24 07:00 FiO2 Intake & Output 09/30/24 10/01/24 10/01/24 18:59 06:59 18:59 Intake Total 540 Balance 540 Intake: Oral 540 Other: Voiding Method Toilet # Voids 5 2 # Bowel Movements 1 - Labs CBC & Chem 7: 10/01/24 05:17 09/29/24 04:40 Labs: Abnormal Lab Results - Last 24 Hours (Table) 09/30/24 10/01/24 10/01/24 Range/Units 12:05 05:17 05:17 WBC 14.8 H 13.7 H (3.8-10.6) k/uL Neutrophils # 12.9 H 12.0 H (1.3-7.7) k/uL Lymphocytes # 0.7 L 0.9 L (1.0-4.8) k/uL Monocytes # 1.1 H (0-1.0) k/uL Iron 202 H (65-175) UG/DL % Saturation 83.82 H (15.00-50.00) Transferrin 172.0 L (204.0-354.0) mg/dL Ferritin 389.0 H (22.0-322.0) ng/mL
[2024-10-01] MEDS: HYDROcodone/APAP 5-325MG 1 EACH TAB PO PRN (16:10)
[2024-10-02 08:20] LABS: Basophils # (A) 0.02 X 10*3/uL (0.00-0.10); Basophils % (A) 0.2 %; Eosinophils # (A) 0.02 X 10*3/uL (0.04-0.35); Eosinophils % (A) 0.2 %; HCT 45.1 % (39.6-50.0); HGB 16.1 g/dL (13.0-17.0); Lymphocytes # (A) 1.42 X 10*3/uL (0.90-5.00); Lymphocytes % (A) 11.9 %; MCH 30.9 pg (27.0-32.0); MCHC 35.7 g/dL (32.0-37.0); MCV 86.6 FL (80.0-97.0); Mean Platelet Volume 11.7 FL (9.5-12.2); Monocytes % (A) 11.7 %; NRBC Per 100 WBC 0 X 10*3/uL (0.00-0.01); Neutrophils # (A) 8.97 X 10*3/uL (1.80-7.70); Neutrophils % (A) 75.2 %; Platelet Count 261 X 10*3/uL (140-440); RBC 5.21 X 10*6/uL (4.40-5.60); RDW 12.3 % (11.5-14.5); WBC 11.93 X 10*3/uL (4.50-10.00)
[2024-10-02 09:03] LABS: BUN/Creat Ratio 28.88 Ratio (12.00-20.00); Blood Urea Nitrogen 23.1 mg/dL (9.0-27.0); Calcium 9.3 mg/dL (8.7-10.3); Chloride 99 mmol/L (96-109); Glucose 132 mg/dL (70-110); Potassium 4.4 mmol/L (3.5-5.5); Sodium 133 mmol/L (135-145)
--- NOTE | 2024-10-02 12:23 | P.PN ---
Subjective Progress Note Date: 10/02/24 SURGICAL PROGRESS NOTE CHIEF COMPLAINT: Back pain HISTORY OF PRESENT ILLNESS: Surgical service is following in regards to patient's GI bleed. Patient's bloody diarrhea has resolved. He had a soft brown stool today. Denies any abdominal pain. Hemoglobin has gone up from 15.4-16. Patient is scheduled for procedure with pain medicine service for his back pain. Afebrile. Mildly tachycardic. PHYSICAL EXAM: VITAL SIGNS: Reviewed. GENERAL: Well-developed in no acute distress. HEENT: No sclera icterus. Extraocular movements grossly intact. Moist buccal mucosa. Head is atraumatic, normocephalic. ABDOMEN: Soft. Nondistended. Nontender. NEUROLOGIC: Alert and oriented. Cranial nerves II through XII grossly intact. ASSESSMENT: 1. GI bleed likely secondary to bleeding hemorrhoids. Now resolved. 2. Chronic back pain 3. Constipation PLAN: -Recommend outpatient colonoscopy -Recommend MiraLAX and to titrate as needed for soft bowel movements -Recommend Benefiber [id number] to help with his constipation -Patient can be discharge from surgical standpoint Physician Wood Boatbuilder note has been reviewed by physician. Signing provider agrees with the documented findings, assessment, and plan of care. Objective - Vital Signs Vital signs: Vital Signs Temp 98.1 F 10/02/24 07:20 Pulse 79 10/02/24 07:20 Resp 15 10/02/24 07:20 BP 157/95 10/02/24 07:20 Pulse Ox 96 10/02/24 07:20 FiO2 Intake & Output 10/01/24 10/02/24 10/02/24 18:59 06:59 18:59 Other: # Voids 3 2 # Bowel Movements 1 - Labs CBC & Chem 7: 10/02/24 04:49 10/02/24 04:49 Labs: Abnormal Lab Results - Last 24 Hours (Table) 10/02/24 10/02/24 Range/Units 04:49 04:49 WBC 11.93 H (4.50-10.00) X 10*3/uL Immature Gran # 0.10 H (0.00-0.04) X 10*3/uL Neutrophils # 8.97 H (1.80-7.70) X 10*3/uL Monocytes # 1.40 H (0.20-1.00) X 10*3/uL Eosinophils # 0.02 L (0.04-0.35) X 10*3/uL Sodium 133 L (135-145) mmol/L Carbon Dioxide 21.0 L (21.6-31.8) mmol/L Anion Gap 13.00 H (4.00-12.00) mmol/L BUN/Creatinine Ratio 28.88 H (12.00-20.00) Ratio Glucose 132 H (70-110) mg/dL
--- NOTE | 2024-10-02 12:40 | P.PN ---
Progress Note - Text Progress Note Date: 10/02/24 Patient is seen and examined at bedside. His is next to him. He does not have new complaints. He says his pain is somewhat better controlled when he is laying still but he still has great difficulty when he tries to stand more than a minute or 2. He is able to get to the bathroom and back in bed. He is voiding freely. General surgery has seen him and I appreciate their input. He has been afebrile with stable vital signs Abdomen soft nontender His lower extremities have sustained dorsiflexion plantarflexion EHL His back is significant pain when he tries to mobilize and ambulate. Acute on chronic low back pain Spondylolisthesis L4-5 L5-S1 Severe difficulty with mobilization and ambulation Bloody stools The patient is scheduled for epidural steroid injection today. I think that is appropriate. He may have some relief in terms of his back pain and allow him to mobilize better. It typically may take several days or even couple of weeks to see if the injection gives good benefit. It is okay from spine surgery standpoint for the patient to be discharged home after the epidural steroid injections completed when he is okay with medicine. Typically I would see him back in the office after his injections to see if he is making some progress in the next week or so. If he is not making progress we can have further discussions regarding continuing aggressive conservative treatment or interventional pain management versus the possibility of surgical intervention with decompression and fusion. I again discussed this with the patient and his and they understand.
[2024-10-02] MEDS ORDERED: methylPREDNISolone ACETATE 80 MG/ML 1 ML VIAL ONE (14:46)
[2024-10-02] MEDS ORDERED: IOPAMIDOL M200 10 ML VIAL ONE (14:46)
--- NOTE | 2024-10-02 14:52 | P.PCN ---
Date of Procedure: 10/02/24 Procedure(s) Performed: PREOPERATIVE DIAGNOSIS: 1- Lumbar Degenerative Disc Diseases 2-Lumbar spondylosis with Facet arthropathy without myelopathy. 3-lumbar radiculopathy POSTOPERATIVE DIAGNOSIS: 1-lumbar degenerative disc disease. 2-lumbar spondylosis with facet arthropathy without myelopathy. 3-lumbar radiculopathy PROCEDURE 1. Lumbar epidural steroid injection under fluoroscopic guidance at the L5-S1 level. (Fluoroscopy imaging was available in radiology department) 2. Lumbar epidurogram. ANESTHESIA: Lidocaine 1% 3 and then only. EBL: Minimal PROCEDURE INDICATION: The patient with low back pain and radiculitis symptoms unresponsive to conservative treatment. Fluoroscopy was used to optimize visualization of the needle placement and to maximize safety. PROCEDURE DESCRIPTION / TECHNIQUE: The patient was seen and identified in the preoperative area. Risks, benefits, complications including but not limited to infections ,bleeding ,allergic reaction to the medications ,nerve damage and not complete pain releife , and alternatives were discussed with the patient. The patient agreed to proceed with the procedure and signed the consent, and vital signs were stable. Patient was taken to the OR and time out was completed. The patient was placed in the prone position on procedure table and a pillow was placed under the abdomen to reduce lumbar lordosis. The lumbosacral area was prepped and draped in the usual sterile fashion.ere closely monitored during the procedure. Vital signs was monitered during the entire procedure. Using anterior-posterior fluoroscopy, the L5-S1 interlaminar space was identified and the skin over this site was marked and then infiltrated with 1% lidocaine subcutaneously. Subsequently, a 20-gauge Tuohy epidural needle was inserted and advanced toward the epidural space using the ``Loss of resistance technique and guided by AP and lateral fluoroscopy. The correct needle position in the epidural space was verified with the injection of 2 mL of the water soluble contrast dye Isovue 200 contrast and observing an excellent epidurogram with the epidural spread of the dye, after negative aspiration for blood and CSF and in the absence of paresthesias. Again after negative aspiration, a 6 ml mixture containing 80 mg of Depo-medrol ( Preservetive Free ), and 2 ml of preservative free Normal Saline, and 2 ml of preservative free lidocaine 1% solution was injected and a washout of epidurogram was seen. Needle was withdrawn intact, skin was cleansed, and bandages were applied. COMPLICATIONS: None DISPOSITION / PLANS: The patient was placed in a supine position and transferred to the recovery area in a stable condition for observation. There was no evidence of lower extremity motor or sensory deficit after the procedure. Patient was discharged from the recovery room after meeting discharge criteria. Home discharge instructions were given to the patient by the staff. The patient was reexamined prior to discharge. The patient will schedule a follow up in the clinic in 2-4 weeks.
--- NOTE | 2024-10-02 15:04 | FL ---
Intraoperative/procedural fluoroscopic services were provided for lumbar epidural steroid injection. Total fluoroscopy time is 1.7 seconds with a total of 2 submitted images to PACS. Total DAP [id number] m Gym2. Please see the operative note for further details. [facility], , 10/02/2024 3:01 PM
--- NOTE | 2024-10-02 22:56 | P.PN ---
Subjective Progress Note Date: 10/02/24 This is a pleasant 64 years old male who presents because of worsening back pain, at bedside Patient states that he has back pain for 25 years. Usually treated with topical agents and follow-up with chiropractor Since beginning of August about 1 month ago his pain was starting getting more severe and was shooting sharp pain radiating to his right leg down to the knee. It was gradually getting worse. He saw his orthopedic Dr. Owusu in the outpatient on Tuesday who prescribed him [place] and prednisone 20 mg. Today patient was taking a shower on his knees and hands because he cannot sit while he was trying to stand up his pain was more severe and sharp so he decided to come to the emergency room Patient is in mild to moderate distress because of his pain, stating currently 7-8/10 in severity. He denies weakness in his legs. He denies losing control of his bowel or urine. He denies numbness in the saddle area but sometimes he got limb numbness, he thinks he has little numbness in the small area on his right thigh. He denies smoking alcohol or illicit drugs No chest pain or dyspnea. No other GI/ symptoms. Vitals are stable and he is afebrile. Urine analysis showing no signs of infection Currently there is no labs or imaging done 09/28 Patient still with severe low back pain as of yesterday Despite his being on dexamethasone steroid and Dilaudid and Flexeril His pain is worse when he tried to go to the restroom. No other new complaints. 09/29 Patient back pain is slightly improving. While continued on IV steroids Orthopedic team evaluated the patient and recommended pain management service which is not available till Tuesday. Patient agrees to stay Patient have somewhat high blood pressure secondary to steroid effect. Added Norvasc and hydralazine as needed 09/30 Patient was seen walking in his room. Also reports some of blood in his stool which was witnessed by staff, it was small streaks. Patient denies dizziness or chest pain or dyspnea. Will do some anemia workup like occult blood in stool. Increase Protonix to twice daily, discontinue subcutaneous heparin. we will consult surgery team for his gi bleed as there is no gi coverage in this facility this weekend Review of systems CONSTITUTIONAL: No fever, no malaise, no fatigue. HEENT: No recent visual problems or hearing problems. Denied any sore throat. CARDIOVASCULAR: No orthopnea, PND, no palpitations, no syncope. PULMONARY: No shortness of breath, no cough, no hemoptysis. GASTROINTESTINAL: No diarrhea, no nausea, no vomiting, no abdominal pain. Normoactive bowel sounds. NEUROLOGICAL: No headaches, no weakness, no numbness. 10/01/2024 Patient is seen and evaluated in follow-up today reports was seeing some bright red blood in the stool and general surgery was consulted and placed patient on clear liquids with concerns of possible GI bleed. Patient reports he was constipated prior to hospitalization and now is having multiple loose stools although no further blood noted. Hemoglobin is stable at 15.4 and again no further bleeding noted. Stool occult was positive. General surgery discussing possible need for EGD/colonoscopy. Patient did have a colonoscopy a few years ago and surgery has requested the results. Patient is reporting continued pain and evaluated by pain management scheduled to undergo epidural injection on 10/02/2024. Orthopedics following with no plans for immediate surgical intervention at this time. Will continue current regimen and monitor closely. Await PT/OT therapy evaluation 10/02/2024 Patient is seen in follow-up this morning currently n.p.o. as patient is scheduled to undergo epidural injection with pain management today. Patient was evaluated by general surgery no further bleeding noted and hemoglobin is stable above 16 likely suggestive of possible hemorrhoids given patient was constipated with no further bleeding noted per patient. Patient is afebrile denies chest pain or shortness of breath. Will continue on current pain regimen and await evaluation by pain management. Discussed discharge planning in 24 hours. Review of systems CONSTITUTIONAL: No fever, no malaise, no fatigue. HEENT: No recent visual problems or hearing problems. Denied any sore throat. CARDIOVASCULAR: No orthopnea, PND, no palpitations, no syncope. PULMONARY: No shortness of breath, no cough, no hemoptysis. GASTROINTESTINAL: Reported episodes of diarrhea, no nausea, no vomiting, no abdominal pain. Normoactive bowel sounds. Reports no further blood noted in the stool NEUROLOGICAL: No headaches, reports of generalized weakness and continued lower back pain Physical exam: Gen: This is a 64-year-old male who is awake, alert and oriented x 3, thin built, elderly appearing HEENT: Head is atraumatic, normocephalic. Pupils equal, round. Sclerae is anicteric. NECK: Supple. No JVD. No lymphadenopathy. No thyromegaly. LUNGS: Diminished breath sounds bilaterally otherwise clear to auscultation. No wheezes or rhonchi. No intercostal retractions. HEART: S1, S2 are muffled ABDOMEN: Soft. Thin, nontender on palpation bowel sounds are present. No masses. No tenderness. EXTREMITIES: No pedal edema. No calf tenderness. Twitching and spasms noted of lower extremities bilaterally on exam NEUROLOGICAL: Patient is awake, alert and oriented x3. Cranial nerves 2 through 12 are grossly intact. Diffusely weak Assessment: Severe acute on chronic back pain radiating to the right leg streaks of blood in his stool. Ruled out acute GI bleed, likely exacerbated by constipation and hemorrhoids. 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 Patient scheduled for epidural injection today with pain management and will await official report General Surgery following as there were concerns of seeing bright red blood in the stool, hemoglobin remained stable and no further bleeding noted. Bleeding per rectum likely exacerbated by hemorrhoids as patient was constipated and then placed on stool softeners. Surgery will see the patient in outpatient setting and schedule colonoscopy at that point Will await pain management evaluation. Will discuss with other consultations regarding discharge planning after epidural injection Overall prognosis is guarded at this time. Probable discharge in 24 hours The impression and plan of care has been dictated by Diane Kam, Nurse Practitioner as directed. Dr. Garland MD I have performed a history and examination and MDM of this patient, discussed the same with the dictator, and agree with the dictator's assessment and plan as written ,documented as a scribe. Based on total visit time, I have performed more than 50% of the visit. Objective - Vital Signs Vital signs: Vital Signs Temp 97.7 F 10/02/24 13:28 Pulse 94 10/02/24 15:10 Resp 18 10/02/24 13:28 BP 144/96 10/02/24 15:10 Pulse Ox 97 10/02/24 15:10 FiO2 Intake & Output 10/02/24 10/02/24 10/03/24 06:59 18:59 06:59 Other: # Voids 2 3 - Labs CBC & Chem 7: 10/02/24 04:49 10/02/24 04:49 Labs: Abnormal Lab Results - Last 24 Hours (Table) 10/02/24 10/02/24 Range/Units 04:49 04:49 WBC 11.93 H (4.50-10.00) X 10*3/uL Immature Gran # 0.10 H (0.00-0.04) X 10*3/uL Neutrophils # 8.97 H (1.80-7.70) X 10*3/uL Monocytes # 1.40 H (0.20-1.00) X 10*3/uL Eosinophils # 0.02 L (0.04-0.35) X 10*3/uL Sodium 133 L (135-145) mmol/L Carbon Dioxide 21.0 L (21.6-31.8) mmol/L Anion Gap 13.00 H (4.00-12.00) mmol/L BUN/Creatinine Ratio 28.88 H (12.00-20.00) Ratio Glucose 132 H (70-110) mg/dL
[2024-10-03 10:25] VITALS: BP 154/94; PULSE 91; RESP 14; TEMP 98.4
== END 2024-10-03 12:43 | disposition home or self-care (01) | DRG 552 ==
LOC: EC 09:05 → 6NMEDSUR 11:56 → OBSVTOIN 11:57 → 6NMEDSUR 13:23
PROVIDERS: ADMIT Internal Medicine; ATTEND Internal Medicine
PROC: B01B1ZZ Fluoroscopy of Spinal Cord using Low Osmolar Contrast (ICD-10-PCS; 2024-10-02)
PROC: 3E0R33Z Introduction of Anti-inflammatory into Spinal Canal, Percutaneous Approach (ICD-10-PCS; principal; 2024-10-02 14:30)
DX: M47.26 Other spondylosis with radiculopathy, lumbar region (principal); K92.1 Melena; L40.50 Arthropathic psoriasis, unspecified; I15.8 Other secondary hypertension; G89.29 Other chronic pain; Z86.61 Personal history of infections of the central nervous system; M48.062 Spinal stenosis, lumbar region with neurogenic claudication; M51.16 Intervertebral disc disorders with radiculopathy, lumbar region; T38.0X5A Adverse effect of glucocorticoids and synthetic analogues, initial encounter; M43.16 Spondylolisthesis, lumbar region; K59.00 Constipation, unspecified; R19.7 Diarrhea, unspecified; K64.9 Unspecified hemorrhoids; Z87.19 Personal history of other diseases of the digestive system; Z79.899 Other long term (current) drug therapy
CPT/HCPCS: 62323; 80048; 82272; 82728; 83540; 83550; 83735; 85025; 96374; 96375; 96376; 99285

== ENCOUNTER → 2024-10-29 | Outpatient (CLI) | payer OTHER ==
--- NOTE | 2024-10-29 11:47 | XR ---
EXAMINATION TYPE: XR chest 2V DATE OF EXAM: 10/29/2024 11:42 AM COMPARISON: Chest radiographs from 02/07/2023 TECHNIQUE: XR chest 2V Frontal and lateral views of the chest. CLINICAL INDICATION:Male, 64 years old with history of Z01.818 ENCOUNTER FOR OTHER PREPROCEDURAL Z22 .322; preop for spine surgery. FINDINGS: Lungs/Pleura: There is no evidence of pleural effusion, focal consolidation, or pneumothorax. Pulmonary vascularity: Unremarkable. Heart/mediastinum: Cardiomediastinal silhouette is unremarkable. Musculoskeletal: No acute osseous pathology. IMPRESSION: No acute cardiopulmonary disease/process. [facility], , 10/29/2024 11:45 AM
[2024-10-29 12:20] LABS: INR 0.9 (<1.2); Partial Thromboplastin Time 24.9 sec (22.0-30.0)
[2024-10-29 15:37] LABS: Blood Urea Nitrogen 9.9 mg/dL (9.0-27.0); Glucose 108 mg/dL (70-110)
[2024-10-29 15:38] LABS: Calcium 9.9 mg/dL (8.7-10.3); Carbon Dioxide 27.7 mmol/L (21.6-31.8); Chloride 102 mmol/L (96-109); Potassium 4.8 mmol/L (3.5-5.5); Sodium 140 mmol/L (135-145)
[2024-10-29 15:45] LABS: Basophils # (A) 0.04 X 10*3/uL (0.00-0.10); Basophils % (A) 0.7 %; Eosinophils # (A) 0.22 X 10*3/uL (0.04-0.35); Eosinophils % (A) 3.7 %; HCT 46.2 % (39.6-50.0); HGB 15.3 g/dL (13.0-17.0); Lymphocytes # (A) 1.86 X 10*3/uL (0.90-5.00); Lymphocytes % (A) 31.2 %; MCH 29.4 pg (27.0-32.0); MCHC 33.1 g/dL (32.0-37.0); MCV 88.7 FL (80.0-97.0); Mean Platelet Volume 10.6 FL (9.5-12.2); Monocytes # (A) 1.02 X 10*3/uL (0.20-1.00); Monocytes % (A) 17.1 %; NRBC Per 100 WBC 0 X 10*3/uL (0.00-0.01); Neutrophils # (A) 2.79 X 10*3/uL (1.80-7.70); Neutrophils % (A) 46.8 %; Platelet Count 372 X 10*3/uL (140-440); RBC 5.21 X 10*6/uL (4.40-5.60); WBC 5.96 X 10*3/uL (4.50-10.00)
[2024-10-29 19:38] LABS: Appearance,Urine Turbid (Clear); Bilirubin,Urine Negative (Negative); Blood,Urine Negative (Negative); Color,Urine Dark Yellow (Yellow); Ketones,Urine Negative (Negative); Nitrite,Urine Negative (Negative); PH, Urine 5.5; Urobilinogen,Urine 0.2 E.U./DL
[2024-10-29 20:04] LABS: Bacteria,Urine None Seen (None Seen); Calcium Oxalate Crystals,Urine Present (None Seen)
== END | disposition home or self-care (01) ==
LOC: LABPAT 10:50
PROVIDERS: ATTEND Orthopaedic Surgery Orthopaedic Surgery of the Spine
DX: M48.00 Spinal stenosis, site unspecified (principal); M43.10 Spondylolisthesis, site unspecified; Z22.322 Carrier or suspected carrier of Methicillin resistant Staphylococcus aureus
CPT/HCPCS: 36415; 71046; 80048; 81001; 85025; 85610; 85730; 86850; 86900; 86901; 87070

== ENCOUNTER 2024-11-07 07:56 | Observation (INO) | payer OTHER ==
[~2024-11-07 07:56] MED LIST: HYDROmorphone 0.5 MG/0.5 ML SYRINGE IVP PRN; LIDOCAINE 1% (10MG/ML) FOR IV START INTRADERMA PRN; fentaNYL (PF) 50 MCG/ML 2 ML AMP IV PRN
[2024-11-07] MEDS: IV FLUID CONTINUATION 1,000 ML IV ONE ×2 (08:31→09:54)
[2024-11-07] MEDS: ONDANSETRON 4 MG/2 ML VIAL IVP ONE (08:52)
[2024-11-07] MEDS: LACTATED RINGERS 1,000 ML IV SCH (08:52)
[2024-11-07] MEDS ORDERED: ROCURONIUM 10 MG/ML (5 ML VIAL) IV ONE (09:50)
[2024-11-07] MEDS ORDERED: LABETALOL 5 MG/ML VIAL MDV ONE (09:50)
[2024-11-07] MEDS ORDERED: MIDAZOLAM 2 MG/2 ML VIAL ONE (09:50)
[2024-11-07] MEDS ORDERED: fentaNYL (PF) 50 MCG/ML 2 ML AMP ONE (09:50)
[2024-11-07] MEDS ORDERED: LIDOCAINE 1% INJ 10MG/ML (20 ML MDV) ONE (09:50)
[2024-11-07] MEDS ORDERED: NEOSTIGMINE 1 MG/ML 10 ML VIAL ONE (09:50)
[2024-11-07] MEDS ORDERED: GLYCOPYRROLATE 0.2 MG/ML 2 ML VIAL ONE (09:50)
[2024-11-07] MEDS ORDERED: PROPOFOL 10 MG/ML 20 ML VIAL IV ONE (09:50)
[2024-11-07] MEDS ORDERED: KETAMINE HCL IN 0.9 % NACL 50 MG/5 ML SYRINGE ONE (09:50)
[2024-11-07] MEDS ORDERED: FUROSEMIDE 10 MG/ML 2 ML VIAL ONE (09:50)
[2024-11-07] MEDS ORDERED: SUCCINYLCHOLINE CHLORIDE 200 MG/10 ML VIAL IV ONE (09:50)
[2024-11-07] MEDS: ceFAZolin 1,000 MG in SODIUM CHLORIDE 0.9% IRRIGATIO 1,000 ML IRRIGATION PRN ×2 (09:57→12:46)
[2024-11-07] MEDS: THROMBIN (BOVINE) 5,000 UNIT VIAL TOPICAL ONE (10:02)
[2024-11-07] MEDS: BUPIVACAINE (PF) 0.5% 30 ML VIAL SQ ONE ×2 (10:03→10:30)
[2024-11-07] MEDS: LIDOCAINE 2%-EPI 1:100,000 20 ML VIAL SQ ONE ×2 (10:03→10:30)
[2024-11-07] MEDS: LACTATED RINGERS 1,000 ML IV ONE ×2 (10:19→13:00)
[2024-11-07] MEDS ORDERED: BENZOCAINE/MENTHOL LOZENG 1 EACH LOZENGE MUCOUS MEM PRN (14:37)
--- NOTE | 2024-11-07 14:37 | FL ---
EXAMINATION TYPE: FL guidance operating room, XR lumbar spine 1V DATE OF EXAM: 11/07/2024 CLINICAL HISTORY: Low back pain. TECHNIQUE: Fluoroscopy. Intraoperative 2 views lumbar spine COMPARISON: None. FINDINGS: Fluoroscopic guidance was provided during minimally invasive lumbar spine surgical procedu re performed by Dr. Garcia. A total of 59 seconds of fluoroscopic time was utilized during the proced ure and 6 spot intraoperative images are acquired. Intraoperative 2 view show placement of posterior intrapedicular rods and screws transfixing L4-S1 le vels with artificial metallic disc material at these levels. Alignment is satisfactory on the intraop erative images obtained. TOTAL DAP= 810.33 cGy x cm3. IMPRESSION: As Above. [facility], , 11/07/2024 2:35 PM
[2024-11-07] MEDS ORDERED: MAGNESIUM HYDROXIDE 2,400 MG/30 ML CUP PO PRN (14:38)
[2024-11-07] MEDS ORDERED: ONDANSETRON 4 MG/2 ML VIAL IVP PRN (14:38)
[2024-11-07] MEDS ORDERED: CYCLOBENZAPRINE 10 MG TAB PO PRN (14:41)
--- NOTE | 2024-11-07 14:47 | P.OP ---
Date of Procedure: 11/07/24 Preoperative Diagnosis: Spinal stenosis L4-5 L5-S1, dynamic spondylolisthesis L4-5 L5-S1, severe facet arthritis L4-5 L5-S1, lower extreme radiculopathy, low back pain, degenerative disc disease, spondylolysis L5 bilaterally Postoperative Diagnosis: Same Anesthesia: GETA Pathology: none sent Condition: stable Disposition: PACU Description of Procedure: DESCRIPTION OF PROCEDURE(S): BRIEF OPERATIVE NOTE Preoperative Diagnosis: Spinal stenosis L4-5 L5-S1, dynamic spondylolisthesis L4-5 L5-S1, severe facet arthritis L4-5 L5-S1, lower extreme radiculopathy, low back pain, degenerative disc disease, spondylolysis L5 bilaterally Postoperative Diagnosis: Same Procedure: Laminectomy and decompression L4-5 L5-S1 Computer CT navigation aided Minimally invasive Posterior lateral decompression and facet fusion L4-5 L5-S1 Minimally invasive Transforaminal lumbar interbody fusion for a 360 fusion L4-5 L5-S1 Discectomy for decompression L4-5 L5-S1 Placement of interbody graft L4-5 L5-S1 Use of computer navigation for fusion L4-5 L5-S1 Local autogenous bone grafting Aspiration of bone marrow from the vertebral body pedicle L4 on the right Use of bone graft extenders Surgeon: Dr. Garcia Supervisor Tellers: Rey ALEXANDRE who is present throughout the entire the case persistence during positioning, dissection, exposure, visualization, and all crucial elements of the case as well as closure. Anesthesia: General anesthesia per Estimated blood loss: Approximately 300 mL, with blood given back via Cell Saver Complications: None apparent Components implanted: K2M minimally invasive [place] pedicle screw system withsc rews measuring 6.5 mm in diameter to rods peek Carleton interbody cages measuring 6 mm with 10 mL of osteo amp bio4 bone graft substitute and 30 mL of the BX bone fibers to supplement the local autogenous bone graft and bone marrow aspirate Disposition: To recovery room in good stable condition. OPERATIVE INDICATIONS The patient has had severe issues at their lower extremity in her lower back ov er the past several years with significant worsening over the past several months. He had been hospitalized over the past couple of months couple of times because of the severity of his pain and symptoms. He was found to have severe dynamic spondylolisthesis L4-5 and L5-S1 with severe stenosis which correlated well with his low back and lower extremity symptoms. Over the past few months the patient had pain at their back and their lower extremities. The patient is having severe radicular symptoms at their lower extremity with weakness. The patient is having significant pain in their back. They are unable to obtain any comfort. We did aggressive conservative treatment with medications therapy and interventional pain management however thery were not having any relief. The patient also showed evidence of a listhesis with some dynamic instability. The patient has been through conservative treatment. We discussed various treatment options including surgery, and the patient wishes to proceed with surgery We discussed the risk, patient's alternatives and benefits of surgery including but not limited to, risk of bleeding risk of infection, risk of need for further surgery, risk of decreased, loss of motion, muscle function, malunion nonunion, hardware failure, nerve damage, paralysis, heart attack, blindness and . They understood issues with the current pandemic and the possibility of exposure. OPERATIVE SUMMARY After discussing all the risks, patient alternatives and benefits at length, the patient elected to proceed with surgical intervention, signed informed consent, and presented for their procedure. The patient was seen and examined in the preoperative holding area and the surgical site was marked. The patient was given antibiotics and brought to the operating room. The patient was sedated and intubated by anesthesia in standard fashion. The patient was positioned on to the operating room table in a prone position on the appropriate frame which was well-padded and well molded. We were careful to pad any bony prominences and pressure points. We were careful to maintain the patient's cervical spine and good neutral alignment and position throughout. The patient was prepped and draped in a normal standard fashion. An appropriate timeout and keystone protocol performed. We were able to proceed with the surgery. The local wound area was infiltrated with local anesthetic. Over the right iliac crest I was able to make small stab incisions and establish a guidepin screw fixation to the iliac crest 2. I was able place the computer referencing device over the guidepins to establish an appropriate reference point for the Ziem CT navigation. We then were able to place patient in an appropriate drape and do a navigation spin for visualization and 3-D reconstruction of the lumbar spine. I was able utilize C-arm guidance and navigation to establish appropriate position over the pedicles bilaterally at the appropriate levels at L4-L5 and S1. With the appropriate levels confirmed was able to make small incisions over the appropriate pedicle sites bilaterally. Utilizing the computer navigation device I was able to establish bony landmarks at the right iliac crest for a bony reference point for the navigation device. I was able to establish a Jamshidi needle over the lateral aspect of the pedicle and advanced the trocar into the pedicle being careful not to breech superiorly inferiorly medially or laterally using computer navigation device. Position was confirmed regularly with AP and lateral images on C-arm and with the computer navigation device at the appropriate levels bilaterally. I was able to establish the trocar into the pedicle appropriately into the posterior aspect of the vertebral body bilaterally at the appropriate levels. This was done at each of the pedicle positions and each of the vertebrae at L4- L5 and S1. At the superior vertebrae of L4 I was able to take approximately 25 mL of bone aspiration for use later in the case to supplement the allograft and autograft bone. I was able place the guidewire into the trocar and into the vertebral body appropriately under C-arm guidance. Dissection was taken down over the wire to the appropriate starting position for the screw placed. The appropriate length screw was chosen, threaded over the guidewire and screwed appropriately into the pedicle and vertebral body under C-arm guidance in excellent alignment and position with good bony purchase. This is done at each of the screw sites at the appropriate levels. Upon completion of placement of the screws we spun the CircuLite navigation device again and confirmed excellent alignment and position of all the screws at L4-L5 and S1 With the screws intact I extended the incision to connect the screw hole sites on the most symptomatic side on the right. I dissected down to establish access over the pars and lamina to the base of the spinous process. I was able to expose the facet joint. The capsule the facet was taken down and showed some facet arthrosis at the joint. I was able to use a combination of curettes and Kerrison rongeurs and a high-speed drill to take down the facet joint and do a facetectomy. The decompression was more difficult given the nature and severity of his listhesis but was able to get excellent decompression at both levels. I started at L5-S1 and then moved up to L4-5 similarly. I was able get excellent foraminal decompression and central decompression with undermining across midline to perform a laminectomy centrally and contralaterally. I was able get good central decompression. The ligamentum flavum was taken down to further decompress centrally and at bilateral neural foramen. I was able to expose the disc space and visualize the traversing nerve root. Note was made of some disc protrusion and disc herniation that was abutting the traversing nerve root at the level causing further compression of the nerve root. I was able to establish a annulotomy at the appropriate level protecting soft tissue and neural structures. Note was made of some disc desiccation at the disc. I performed a complete discectomy with accommodation of curettes and rasps and scrapers. I was able get good endplate preparation at the disc space. I sized for the appropriate size interbody spacer protecting the soft tissue and neural structures. The wound was copiously irrigated and suctioned dry. There is no evidence of any dural tear or leak. I was able to pack the disc space with local autogenous bone graft as well as a small amount of bone graft which was also placed into the interbody cage itself. Protecting the soft tissue structures and neural structures I was able place the interbody cage in good alignment and good position with good fit and fill at the interbody space. Position was confirmed with C-arm guidance. Good hemostasis maintained. There is no evidence of any dural tear or leak. The wound was irrigated and suctioned dry. With the hardware intact, intraoperative C-arm imaging was again taken which showed good alignment and position of the hardware at the appropriate levels at L4-L5 and S1. We were then able to measure, contour and place the rods and appropriate hardware bilaterally. I was able to use the rods and screws to obtain further reduction of the listhesis and excellent distraction at the disc spaces to get improved realignment at L4-L5 and S1. I was able to place capcrews, tighten them down, and torque them with the torque screwdriver appropriately. With this intact I was able to place the local autogenous bone graft with additional bone graft enhancer as necessary into the posterior lateral gutters over the decorticated transverse processes and facet joints on the contralateral side. The remainder of the bone graft was placed over the facet joint on the contralateral side after taking down the facet joint capsule. With the bone graft intact, a stable construct, and good decompression at the appropriate levels, we were able to proceed with closure. Good hemostasis was maintained. There is no evidence of dural tear or leak. The fascia was closed for a watertight closure. he subcuticular tissue was closed with absorbable suture. The wound was cleaned and dried and dressed with the appropriate dressing. The drapes were broken down. The patient was gently rolled back onto their hospital bed being careful to maintain their cervical spine and good neutral alignment and position. They were woken up by anesthesia, extubated, and brought to the recovery room in good stable condition. The patient will be admitted to the hospital for appropriate postoperative care, medical management and monitoring. We will continue to follow them closely about the postoperative course.
[2024-11-07] MEDS: HYDROmorphone 1 MG/ML 1 ML SYRINGE IVP PRN (16:02)
[2024-11-07] MEDS: DEXAMETHASONE SOD PHOSPHATE 4 MG/ML 1 ML VIAL IV ONE (16:20)
[2024-11-07] MEDS: SODIUM CHLORIDE 0.9% 1,000 ML IV SCH (16:20)
[2024-11-07] MEDS: HYDROcodone/APAP 10-325MG 1 EACH TAB PO PRN (18:27)
[2024-11-07] MEDS: amLODIPine 10 MG TAB PO SCH (18:27)
[2024-11-07] MEDS: CYCLOBENZAPRINE 10 MG TAB PO PRN (19:54)
[2024-11-08] MEDS: CALCIUM CARBONATE 500 MG CHEWABLE PO PRN (00:35)
[2024-11-08] MEDS: diazePAM 5 MG TAB PO PRN (00:51)
[2024-11-08] MEDS: SENNOSIDES-DOCUSATE SODIUM 1 EACH TAB PO SCH (08:22)
[2024-11-08] MEDS: FAMOTIDINE 20 MG TAB PO SCH (08:22)
[2024-11-08] MEDS ORDERED: WHEAT DEXTRIN PO SCH (09:00)
[2024-11-08 09:12] LABS: Basophils # (A) 0.03 X 10*3/uL (0.00-0.10); Basophils % (A) 0.3 %; Eosinophils # (A) 0.03 X 10*3/uL (0.04-0.35); Eosinophils % (A) 0.3 %; HCT 36.1 % (39.6-50.0); HGB 12.6 g/dL (13.0-17.0); Lymphocytes # (A) 1.07 X 10*3/uL (0.90-5.00); Lymphocytes % (A) 9.2 %; MCH 29.9 pg (27.0-32.0); MCHC 34.9 g/dL (32.0-37.0); MCV 85.5 FL (80.0-97.0); Mean Platelet Volume 10.4 FL (9.5-12.2); Monocytes # (A) 1.35 X 10*3/uL (0.20-1.00); Monocytes % (A) 11.6 %; NRBC Per 100 WBC 0 X 10*3/uL (0.00-0.01); Neutrophils # (A) 9.11 X 10*3/uL (1.80-7.70); Neutrophils % (A) 78.1 %; Platelet Count 258 X 10*3/uL (140-440); RBC 4.22 X 10*6/uL (4.40-5.60); RDW 13.3 % (11.5-14.5); WBC 11.65 X 10*3/uL (4.50-10.00)
--- NOTE | 2024-11-08 09:52 | P.PN ---
Progress Note - Text Progress Note Date: 11/08/24 Postoperative day #1 Patient is seen and examined today at bedside. The patient has some pain around the surgical site as expected. Pain is being controlled with medication. He says his legs are doing well. His back is sore. He he had his [place] out and is has been able to void already. He is tolerating his diet. He denies any nausea or vomiting. He denies any chest pain or shortness of breath. He feels like he has some reflux because of eating in bed Physical Exam Afebrile with stable vital signs Abdomen is soft nontender. He has no distention. Chest has good excursion deep and space expiration The incision site is clean dry and intact. No erythema there is no purulence. Extremities have not had neurologic change from prior to surgery. He has sustained dorsiflexion plantarflexion EHL intact. Calves and thighs were soft nontender without evidence of DVT. Assessment/Plan Postoperative day #1 status post minimally invasive decompression fusion at L4-5 L5-S1 for his high-grade spondylolisthesis with spinal stenosis and lower extreme radiculopathy Patient is progressing as expected from the surgery. The pain at his back is expected but is seems to be controlled adequately with the pain medication regimen. We will continue to increase the patient's mobilization with therapy. He will be up out of bed on his feet today and hopefully will be able to advance his motion more in the next day or 2 We will continue pain control with oral or IV medications. He seems to be having some reflux and is taking Tums for this. Hopefully this will settle down as he is able to sit up while he eats. He denies any chest pain or shortness of breath. We'll continue to follow patient closely.
[2024-11-08 10:04] LABS: Blood Urea Nitrogen 9.6 mg/dL (9.0-27.0); Carbon Dioxide 27.3 mmol/L (21.6-31.8); Chloride 100 mmol/L (96-109); Glucose 127 mg/dL (70-110); Potassium 3.9 mmol/L (3.5-5.5); Sodium 138 mmol/L (135-145)
--- NOTE | 2024-11-08 14:25 | P.CONS ---
History of Present Illness - Reason for Consult Consult date: 11/08/24 Medical management Requesting physician: Yusuf Garcia - Chief Complaint status post minimally invasive decompression fusion at L4-5, L5-S1 - History of Present Illness This is a 64-year-old gentleman with past medical history significant for hypertension, psoriatic arthritis, childhood encephalitis , occasional marijuana use ,admitted with high-grade spondylolisthesis with spinal stenosis and lower extremity radiculopathy, status post minimally invasive decompression and fusion at L4-5 space L5-S1, postop day #1, tolerated procedure well. Positive pain. Spontaneously voiding, Chandler catheter discontinued. Denies nausea ,vomiting. Denies abdominal pain. Mild tachycardia, denies chest pain, palpitations or shortness of breath. Afebrile, WBC 11.65, hemoglobin 12.6, platelets 258. Electrolytes and renal function within normal limits. Review of Systems Constitutional: Denied any fatigue denied any fever. Cardio vascular: denied any chest pain, palpitations Gastrointestinal denied any nausea vomiting Pulmonary: Denied any shortness of breath cough Neurologic denied any new focal deficits ROS Statement: Those systems with pertinent positive or pertinent negative responses have been documented in the HPI. ROS Other: All systems not noted in ROS Statement are negative. Past Medical History Past Medical History: Hypertension Additional Past Medical History / Comment(s): PSORIATIC ARTHRITIS, HX ENCEPHALITIS CHILD ringing in ears. History of Any Multi-Drug Resistant Organisms: None Reported Past Surgical History: Appendectomy, Hernia Repair, Orthopedic Surgery Additional Past Surgical History / Comment(s): LEFT WRIST CYST REMOVED, RT THUMB SX, "GLAND" REMOVED FROM NECK , left knee arthroscopy Past Anesthesia/Blood Transfusion Reactions: No Reported Reaction Additional Past Anesthesia/Blood Transfusion Reaction / Comm: no blood tx hx Smoking Status: Never smoker - Past Family History Mother Family Medical History: No Reported History Medications and Allergies Home Medications Medication Instructions Recorded Confirmed Type Etanercept [Enbrel] 50 mg SQ MO 07/20/16 11/07/24 History Famotidine [Pepcid] 20 mg PO DAILY 09/27/24 11/07/24 History HYDROcodone/APAP 7.5-325MG [[place] 1 tab PO DAILY PRN 09/27/24 11/07/24 History 7.5-325] Acetaminophen Tab [Tylenol] 650 mg PO Q6HR PRN tab 10/03/24 11/07/24 Rx Sennosides-Docusate Sodium 1 each PO DAILY PRN #20 tab 10/03/24 11/07/24 Rx [Senokot-S] Cyclobenzaprine [Flexeril] 10 mg PO DAILY PRN 11/02/24 11/07/24 History Wheat Dextrin [Benefiber] 1 packet PO DAILY 11/02/24 11/07/24 History amLODIPine [Norvasc] 10 mg PO DAILY 11/02/24 11/07/24 History Allergies Allergy/AdvReac Type Severity Reaction Status Date / Time Penicillins Allergy Rash/Hives Verified 11/07/24 08:24 Physical Exam Vitals: Vital Signs Temp Pulse Pulse Resp BP Pulse Ox 11/08/24 13:52 98.1 F 116 H 17 142/84 95 11/08/24 07:41 97.9 F 117 H 18 138/98 97 11/08/24 01:02 98.1 F 113 H 17 120/82 96 11/07/24 17:30 55 L 149/77 94 L 11/07/24 17:15 105 H 136/87 94 L 11/07/24 17:00 104 H 128/86 94 L 11/07/24 16:45 104 H 131/85 94 L 11/07/24 16:30 100 131/87 94 L 11/07/24 16:15 95 134/85 93 L 11/07/24 16:05 97.4 F L 91 18 141/89 95 11/07/24 16:00 95 142/87 96 11/07/24 15:25 92 96 16 149/94 98 11/07/24 15:23 91 16 157/103 99 11/07/24 15:08 91 16 157/103 99 11/07/24 14:53 88 16 154/99 99 11/07/24 14:38 97.5 F L 84 16 158/100 100 Intake and Output 11/07/24 11/08/24 11/08/24 22:59 06:59 14:59 Output Total 650 1500 2500 Balance -650 -1500 -2500 Output: Urine 650 1500 2500 Uretheral (Chandler) 1500 1100 Other: Voiding Method Indwelling Catheter Urinal Weight 81.3 kg PHYSICAL EXAM: VITAL SIGNS: [Reviewed] GENERAL: Alert and oriented x 3, laying in bed, no acute distress HEENT: Normocephalic, atraumatic conjunctivae normal. eyes normal. MMM. NECK: Supple, no JVD. No LNs CARDIOVASCULAR: S1, S2 regular.. No murmur RESPIRATION: Unlabored, equal air entry, clear to auscultation ,breath sounds diminished in the bases. ABDOMEN: Soft, nondistended, nontender . No guarding. no masses palpable. +BS. LEGS: No edema. no swelling NERVOUS SYSTEM: Cranial N 2-12 grossly normal. Moves all 4 limbs. Skin: Warm and dry, no rash Results CBC & Chem 7: 11/08/24 05:16 11/08/24 05:16 Labs: Abnormal Lab Results - Last 24 Hours (Table) 11/08/24 11/08/24 Range/Units 05:16 05:16 WBC 11.65 H (4.50-10.00) X 10*3/uL RBC 4.22 L (4.40-5.60) X 10*6/uL Hgb 12.6 L (13.0-17.0) g/dL Hct 36.1 L (39.6-50.0) % Immature Gran # 0.06 H (0.00-0.04) X 10*3/uL Neutrophils # 9.11 H (1.80-7.70) X 10*3/uL Monocytes # 1.35 H (0.20-1.00) X 10*3/uL Eosinophils # 0.03 L (0.04-0.35) X 10*3/uL Glucose 127 H (70-110) mg/dL Assessment and Plan Assessment: high-grade spondylolisthesis with spinal stenosis and lower extremity radiculopathy, status post minimally invasive decompression and fusion at L4-5 space L5-S1, postop day #1 Gastroesophageal reflux disease Hypertension marijuana use, occasional Plan: Continue on current medication regimen ,monitoring and symptomatic treatment. Pain management, DVT prophylaxis as per orthopedic spine.aggressive pulmonary toileting with incentive spirometer reinforced. IV push PPI added for complaints of reflux in addition to Pepcid. Home meds have been reviewed and resumed accordingly. PT OT. Thank you for the consult. The impression and plan of care has been dictated as directed. : I performed a history and examination of this patient, discussed the same with the dictator. I agree with the dictator's note ,documented as a scribe. Any additional findings or plans will be noted.
[2024-11-08] MEDS: PANTOPRAZOLE 40 MG/10 ML VIAL IVP SCH (14:41)
[2024-11-09 07:32] VITALS: BP 163/82; RESP 16; TEMP 98.4
--- NOTE | 2024-11-09 08:26 | P.DS ---
Providers Date of admission: 11/08/24 15:19 Expected date of discharge: 11/09/24 Attending physician: Yusuf Garcia Consults: 11/07/24 14:38 Consult Physician Routine Consulting Provider: Mayo Roblero Reason/Comments: Medical management Do you want consulting provider notified?: Yes Primary care physician: Mayo Roblero - Discharge Diagnosis(es) (1) Spondylolisthesis, lumbar region Current Visit: Yes Status: Acute (2) Spondylolisthesis, lumbosacral region Current Visit: Yes Status: Acute (3) Lumbar spinal stenosis Current Visit: Yes Status: Acute (4) Lumbar spondylolysis Current Visit: Yes Status: Acute (5) Lumbar degenerative disc disease Current Visit: Yes Status: Acute (6) Lumbar facet arthropathy Current Visit: Yes Status: Acute (7) Facet arthropathy, lumbosacral Current Visit: Yes Status: Acute (8) Lumbar back pain with radiculopathy affecting right lower extremity Current Visit: Yes Status: Acute (9) Hypertension Current Visit: Yes Status: Acute (10) GERD (gastroesophageal reflux disease) Current Visit: Yes Status: Acute (11) Marijuana use Current Visit: Yes Status: Acute Hospital Course: This is a pleasant 64-year-old male who presented with L4-5 and L5-S1 spinal stenosis, dynamic spondylolisthesis, and severe facet arthritis with lower extremity radiculopathy, low back pain, lumbar degenerative disc disease, and L5 bilateral spondylolysis who failed outpatient conservative therapy. He was admitted for an L4-5 and L5-S1 minimally invasive posterior lateral decompression and fusion with transforaminal lumbar interbody fusion. The patient tolerated the procedure well and did well postoperatively. He feels his pain is well-controlled. He is not currently complaining of any significant lower extremity weakness or radiculopathy. He was having significant difficulty with right lower extremity leg pain prior to surgical intervention. He has some pain at the surgical sites at his lumbar spine but states his pain has been actively controlled with oral medications. He states he has oral hydrocodone and cyclobenzaprine at home. He does not feel he needs any pain medication at the time of discharge. He feels he is ready for discharge today and is happy with his progress postoperatively. Condition on day of discharge stable. Patient will be discharged home. Patient was cleared preoperatively for surgery by Dr. Roblero. Patient currently denies any nausea, vomiting, fever, or chills. Patient is eating and voiding freely without difficulty. Patient may shower Optifoam dressing intact. Patient may remove Optifoam dressing in 3 days and shower without a dressing at that time. Patient should refrain from driving until at least after their first follow-up appointment in the office. Patient should avoid excessive bending, lifting, and twisting; no lifting greater than 10 pounds. Patient's other medical diagnoses include hypertension, GERD, and occasional marijuana use. Patient should avoid anti-inflammatory medications over the next 6 weeks postoperatively. Physical Exam on day of discharge: Patient is awake, alert, and oriented 3 Vital signs stable Good chest excursion with deep inspiration and expiration No signs or symptoms of DVT; no calf pain; calves are soft nontender bilaterally Extensor hallucis longus, plantarflexion, and dorsiflexion positive sustained bilateral lower extremities Incision is dry and intact; no erythema, purulence, or signs of infection Optifoam dressings are intact with 1 spot of dried blood over the left surgical dressing Procedures: L4-5 and L5-S1 minimally invasive posterior lateral decompression and fusion with transforaminal lumbar interbody fusion. Patient Condition at Discharge: Stable Plan - Discharge Summary Discharge Rx Participant: Yes New Discharge Prescriptions: No Action Etanercept [Enbrel] 50 mg SQ MO HYDROcodone/APAP 7.5-325MG [[place] 7.5-325] 1 tab PO DAILY PRN PRN Reason: Pain Sennosides-Docusate Sodium [Senokot-S] 1 each PO DAILY PRN #20 tab PRN Reason: Constipation amLODIPine [Norvasc] 10 mg PO DAILY Cyclobenzaprine [Flexeril] 10 mg PO DAILY PRN PRN Reason: Muscle Spasm Famotidine [Pepcid] 20 mg PO DAILY Acetaminophen Tab [Tylenol] 650 mg PO Q6HR PRN tab PRN Reason: Mild Pain Or Fever > 100.5 Wheat Dextrin [Benefiber] 1 packet PO DAILY Discharge Medication List Etanercept [Enbrel] 50 mg SQ MO 07/20/16 [History] Famotidine [Pepcid] 20 mg PO DAILY 09/27/24 [History] HYDROcodone/APAP 7.5-325MG [[place] 7.5-325] 1 tab PO DAILY PRN 09/27/24 [History] Acetaminophen Tab [Tylenol] 650 mg PO Q6HR PRN tab 10/03/24 [Rx] Sennosides-Docusate Sodium [Senokot-S] 1 each PO DAILY PRN #20 tab 10/03/24 [Rx] Cyclobenzaprine [Flexeril] 10 mg PO DAILY PRN 11/02/24 [History] Wheat Dextrin [Benefiber] 1 packet PO DAILY 11/02/24 [History] amLODIPine [Norvasc] 10 mg PO DAILY 11/02/24 [History] Follow up Appointment(s)/Referral(s): Rey Carrillo, RODERICK [PHYSICIAN [employer]] - 2 Weeks (Patient may follow-up with Rey Carrillo PA-C or Dr. Apollo Garcia at [facility] in 2-3 weeks following discharge. ) Activity/Diet/Wound Care/Special Instructions: 1. Patient may shower with Optifoam dressing intact. 2. Patient may remove Optifoam dressing in 3 days and shower without a dressing at that time. 3. Patient should refrain from driving until at least after their first follow- up appointment in the office. 4. Patient should avoid excessive bending, twisting, lifting; avoid overhead lifting; no lifting greater than 10 pounds 5. Take medications as prescribed 6. Patient should avoid anti-inflammatory medications over the next 6 weeks postoperatively 7. He may utilize walker to aid in ambulation as needed 8. Do not soak in tub Discharge Disposition: HOME SELF-CARE
[2024-11-09 09:07] LABS: HGB 12.4 g/dL (13.0-17.0); MCH 29.2 pg (27.0-32.0); MCHC 32.6 g/dL (32.0-37.0); MCV 89.6 FL (80.0-97.0); Mean Platelet Volume 10.8 FL (9.5-12.2); NRBC Per 100 WBC 0 X 10*3/uL (0.00-0.01); Platelet Count 243 X 10*3/uL (140-440); RBC 4.24 X 10*6/uL (4.40-5.60); RDW 13.1 % (11.5-14.5); WBC 11.81 X 10*3/uL (4.50-10.00)
--- NOTE | 2024-11-09 11:09 | P.PN ---
Subjective Progress Note Date: 11/09/24 - Reason for Consult Consult date: 11/08/24 Medical management Requesting physician: Yusuf Garcia - Chief Complaint status post minimally invasive decompression fusion at L4-5, L5-S1 - History of Present Illness This is a 64-year-old gentleman with past medical history significant for hypert ension, psoriatic arthritis, childhood encephalitis , occasional marijuana use ,admitted with high-grade spondylolisthesis with spinal stenosis and lower extremity radiculopathy, status post minimally invasive decompression and fusion at L4-5 space L5-S1, postop day #1, tolerated procedure well. Positive pain. Spontaneously voiding, Chandler catheter discontinued. Denies nausea ,vomiting. Denies abdominal pain. Mild tachycardia, denies chest pain, palpitations or shortness of breath. Afebrile, WBC 11.65, hemoglobin 12.6, platelets 258. Electrolytes and renal function within normal limits. 11/09/2024 significant clinical improvement. Currently denies numbness or tingling -pain better controlled, tachycardia resolved. Denies chest pain, palpitations or shortness of breath. [place] lightheadedness, dizziness or focal deficits. Patient eager for discharge. Objective - Vital Signs Vital signs: Vital Signs Temp 98.4 F 11/09/24 07:32 Pulse 120 H 11/09/24 07:32 Resp 16 11/09/24 07:32 BP 163/82 11/09/24 07:32 Pulse Ox 94 L 11/09/24 07:52 FiO2 Intake & Output 11/08/24 11/09/24 11/09/24 18:59 06:59 18:59 Intake Total 1380 Output Total 2500 Balance -2500 1380 Intake: Intake, IV Titration 900 Amount Sodium Chloride 0.9% 1, 900 000 ml @ 75 mls/hr IV . [id number] SARI Rx#:[id number] Oral 480 Output: Urine 2500 Uretheral (Chandler) 1100 Other: Voiding Method Urinal Urinal Urinal # Voids 4 - Exam PHYSICAL EXAM: VITAL SIGNS: [Reviewed] GENERAL: Alert and oriented x 3, sitting up in bed, no acute distress HEENT: Normocephalic, atraumatic conjunctivae normal. eyes normal. MMM. NECK: Supple, no JVD. No LNs CARDIOVASCULAR: S1, S2 regular.. No murmur RESPIRATION: Unlabored, equal air entry, clear to auscultation ABDOMEN: Soft, nondistended, nontender . No guarding. no masses palpable. +BS. LEGS: No edema. no swelling NERVOUS SYSTEM: Cranial N 2-12 grossly normal. Moves all 4 limbs. Skin: Warm and dry, no rash - Labs CBC & Chem 7: 11/09/24 06:07 11/08/24 05:16 Labs: Abnormal Lab Results - Last 24 Hours (Table) 11/09/24 Range/Units 06:07 WBC 11.81 H (4.50-10.00) X 10*3/uL RBC 4.24 L (4.40-5.60) X 10*6/uL Hgb 12.4 L (13.0-17.0) g/dL Hct 38.0 L (39.6-50.0) % Assessment and Plan Assessment: high-grade spondylolisthesis with spinal stenosis and lower extremity radiculopathy, status post minimally invasive decompression and fusion at L4-5 space L5-S1, postop day #1 Gastroesophageal reflux disease Hypertension marijuana use, occasional Plan: Continue on current medication regimen ,monitoring and symptomatic treatment. Discharge planning in progress as per orthopedic spine; pain management, DVT prophylaxis as per orthopedic spine.Discussed with RN, vital signs significantly improved-with their charting to follow.patient has been advised to maintain aggressive pulmonary toileting with incentive spirometer . Follow-up with PCP, Dr. Roblero in 1 week. The impression and plan of care has been dictated as directed. : I performed a history and examination of this patient, discussed the same with the dictator. I agree with the dictator's note ,documented as a scribe. Any additional findings or plans will be noted.
[2024-11-09 11:34] VITALS: PULSE 94
[2024-11-12] MEDS ORDERED: NON FORMULARY DRUG (Etanercept [Enbrel] 50 MG/ML Syringe) SQ SCH (14:41)
== END 2024-11-09 10:15 | disposition home or self-care (01) ==
LOC: OR 07:56 → 4SSUR 14:27 → OR 11-08 15:19
PROVIDERS: ADMIT Orthopaedic Surgery Orthopaedic Surgery of the Spine; ATTEND Orthopaedic Surgery Orthopaedic Surgery of the Spine
DX: M48.07 Spinal stenosis, lumbosacral region (principal); M48.061 Spinal stenosis, lumbar region without neurogenic claudication; M43.16 Spondylolisthesis, lumbar region; M43.17 Spondylolisthesis, lumbosacral region; M47.26 Other spondylosis with radiculopathy, lumbar region; M47.27 Other spondylosis with radiculopathy, lumbosacral region; M51.16 Intervertebral disc disorders with radiculopathy, lumbar region; M51.17 Intervertebral disc disorders with radiculopathy, lumbosacral region; L40.50 Arthropathic psoriasis, unspecified; I10 Essential (primary) hypertension; K21.9 Gastro-esophageal reflux disease without esophagitis; Z79.899 Other long term (current) drug therapy; Z88.0 Allergy status to penicillin
CPT/HCPCS: 22633; 22634; 63052; 63053; 22853 ×2; 61783; 22842; 20930; 20936; 96376; 96374; 94760; 97116; 97161; 86891; 80048; 85025; 85027; 72020; G0378 ×2; C1713 ×2; C1762; J2250; J0330; J1940; J2710; J0690 ×3; J2405; J2003; J3010; J1171 ×3; J2704; J0665; J1920; J1596; J2470 ×2